=== PATIENT | female | born 1985 | race Caucasian/White ===

== ENCOUNTER 2018-05-08 15:34 | Observation (INO) ==
[2018-05-08] MEDS ORDERED: Naloxone 0.4 MG/ML INJ IVP PRN ×2 (15:51→21:19)
[2018-05-08] MEDS ORDERED: *HR* Promethazine 25 MG/ML VIAL IVP PRN ×2 (15:51→21:19)
[2018-05-08] MEDS ORDERED: OXYCODONE Oral CONC 10 MG/0.5 ML ORAL.SYG SL PRN (15:54)
[2018-05-08] MEDS ORDERED: 0.9 % Sodium Chloride 1,000 ML IVC SCH ×2 (16:00→21:19)
[2018-05-08] MEDS ORDERED: Clindamycin 900 MG/50 ML 900 MG/50 ML IV.SOLN IVPB SCH (16:00)
--- NOTE | 2018-05-08 17:56 | General Surg History&Physical ---
Date of Encounter: 05/08/18 Time of Encounter: 17:56 Assessment and Plan (1) Recurrent biliary colic Current Visit: Yes Status: Acute The assessment and plan as outlined above was discussed with the patient and/or family members who expressed understanding and agreement. All questions were answered. patient with continued issues with biliary colic npo, ivf hydration prn pain control will plan laparoscopic cholecystectomy, possible cholangiograms, possible open, risks and benefits previously discussed in office and she wishes to proceed antibiotics ok home medication (2) Seizure disorder Current Visit: Yes Status: Chronic The assessment and plan as outlined above was discussed with the patient and/or family members who expressed understanding and agreement. All questions were answered. continue home medication (3) HTN (hypertension) Current Visit: Yes Status: Chronic The assessment and plan as outlined above was discussed with the patient and/or family members who expressed understanding and agreement. All questions were answered. continue home medication Qualifiers: Hypertension type: essential hypertension Qualified Code(s): I10 - Essential (primary) hypertension History of Present Illness Chief complaint: RUQ abdominal pain HPI: Ms. Delgado is a 33 year old female who is known to me. She has been having RUQ sharp pain which radiates to her back for some time now. Surgery was postponed due to seizures and she underwent neurology clearance. Note printed off for anesthesia. She is still having RUQ pain and persistent nausea and vomiting. She denies diarrhea. She complains of tactile fevers. She had a GB US on 02.28.18 which showed small amt sludge. wbc 5.3, T bili 0.6, ast/alt 20/20, alk phos 46. She was on the OR schedule for next wednesday the . She returned to the ED yesterday which wbc 4.8, lft wnl. Patient was seen by myself several months ago for biliary colic symptoms but needed neurology clearance due to her seizures. She has since obtained clearance. She is still having daily nausea without emesis. Daily RUQ sharp pain that radiates to her back and it does not matter what she eats or when. She denies any diarrhea. She was given promethazine suppositories but she feels they do not help as well as the pills. Nothing makes the pain better. Gallbladder US 02.28.18 Small amount of gallbladder sludge. No cholelithiasis. No evidence of pericholecystic fluid. No evidence of gallbladder wall thickening. wbc 5.3, T bili 0.6, ast/alt 20/20, alk phos 46. Past Med Surg Social Fam HX - Past Medical History Source: patient Medical history: asthma, hepatitis, hyperlipidemia, hypertension, kidney stones , migraine, seizures, other Additional medical history: Hep C Psychiatric history: anxiety, bipolar, depression, PTSD - Past Surgical History Surgical History: other Additional surgical history: Tubal Ligation, bilateral knee surgery, hysteroscopy, D/C, Ablation, septoplasty, right ankle fusion, endoscopy - Social History Smoking Status: Never smoker Smokeless Tobacco Status: No Alcohol use: rarely Drug use: none - Family History Mother Adopted: No Living Status: Still Living Medications and Allergies Acetaminophen/Butalbital/Caffe [Fioricet] 1 cap PO Q4H PRN 05/08/18 [History] Albuterol Sulfate [Ventolin Hfa] 2 puff IH Q4H PRN 05/08/18 [History] Atorvastatin Calcium [Lipitor] 20 mg PO HS 05/08/18 [History] Dicyclomine [Bentyl] 20 mg PO QID 05/08/18 [History] Fexofenadine HCl 180 mg PO DAILY 05/08/18 [History] Gabapentin [Neurontin] 300 mg PO TID 05/08/18 [History] HydrOXYzine Pamoate [Vistaril] 50 mg PO Q8H 05/08/18 [History] LevETIRAcetam [Roweepra] 500 mg PO BID 05/08/18 [History] MOM Conc [Milk of Magnesia Conc] 15 ml PO Q6H PRN 05/08/18 [History] Montelukast [Singulair] 10 mg PO HS 05/08/18 [History] Omeprazole [PriLOSEC] 40 mg PO DAILY 05/08/18 [History] Promethazine [Phenergan] 25 mg PO Q8HR PRN 05/08/18 [History] Propranolol [Inderal] 10 mg PO BID 05/08/18 [History] Quetiapine Fumarate [SEROquel] 300 mg PO HS 05/08/18 [History] Sucralfate [Carafate] 1 gm PO Q6H 05/08/18 [History] 3 Allergy/AdvReac Type Severity Reaction Status Date / Time [place] Allergy Mild Rash Verified 05/08/18 15:36 cephalexin [From Keflex] Allergy Difficulty Verified 05/08/18 15:36 Breathing clarithromycin [From Biaxin] Allergy Difficulty Verified 05/08/18 15:36 Breathing Penicillins Allergy Hives Verified 05/08/18 15:36 Sulfa (Sulfonamide Allergy Blister Verified 05/08/18 15:36 Antibiotics) sumatriptan [From Imitrex] Allergy Difficulty Verified 05/08/18 15:36 Breathing zonisamide [From Zonegran] Allergy Blister Verified 05/08/18 15:36 benzoin AdvReac Rash Verified 05/08/18 15:36 celecoxib [From Celebrex] AdvReac Chest Pain Verified 05/08/18 15:36 naproxen AdvReac Gastrointestinal Verified 05/08/18 15:36 Upset ondansetron AdvReac Rash Verified 05/08/18 15:36 [From Zofran (as hydrochloride)] terbutaline [From Brethine] AdvReac Rash Verified 05/08/18 15:36 topiramate [From Topamax] AdvReac Blister Verified 05/08/18 15:36 Review of Systems All systems PM: reviewed and no additional remarkable complaints except as stated All systems PM: The remainder of the systems were reviewed and are negative General Surgery Exam see nurse notes - General physical appearance well developed, no distress - Eyes PERRL, normal ocular movement - ENT normal mucosa, normocephalic - Neck trachea midline - Respiratory normal expansion, clear to auscultation - Cardiovascular Cardiovascular exam: Present: RRR, no murmurs/rubs/gallops - Abdomen Abdomen general surgery: Present: bowel sounds present, soft, tender. Absent: distended, guarding, rebound Abdominal Tenderness: Present: epigastic, RUQ - Integumentary Integumentary general surgery: Present: warm and dry, no abnormal pigmentation - Neurologic Present: CN 2-12 grossly intact - Musculoskeletal Present: normal posture - Psychiatric Psychiatric general surgery: Present: A&Ox3, speech is normal Results - Labs All other labs normal.
--- NOTE | 2018-05-08 18:06 | Anesthesia Evaluation PreOp ---
Date of Encounter: 05/08/18 Time of Encounter: 19:21 - Past History Planned Operation: Lap cholecystectomy Cardiac History: HTN Pulmonary History: Smoker, Asthma USER INTERFACE ARTIST History: Seizures (04-28-18 neurology cleared her (with nml brain MRI and EEG without evidence of epileptiform activity); PCP refills her Keppra (took her Keppra prior to admission at 11 am on 05-08-18)) Other Medical History: Hepatic (Hep C), Renal (stones), GERD, Other (IBS) Anesthesia History: Past Anesthesia (nilson knee surgery, nilson ankle surgery, tubal , hysteroscopy with D&C, ablation, septoplasty, endoscopy), Problems (slow to emerge twice) Alcohol Use: rarely Drug use: none Medications and Allergies Acetaminophen/Butalbital/Caffe [Fioricet] 1 cap PO Q4H PRN 05/08/18 [History] Albuterol Sulfate [Ventolin Hfa] 2 puff IH Q4H PRN 05/08/18 [History] Atorvastatin Calcium [Lipitor] 20 mg PO HS 05/08/18 [History] Dicyclomine [Bentyl] 20 mg PO QID 05/08/18 [History] Fexofenadine HCl 180 mg PO DAILY 05/08/18 [History] Gabapentin [Neurontin] 300 mg PO TID 05/08/18 [History] HydrOXYzine Pamoate [Vistaril] 50 mg PO Q8H 05/08/18 [History] LevETIRAcetam [Roweepra] 500 mg PO BID 05/08/18 [History] MOM Conc [Milk of Magnesia Conc] 15 ml PO Q6H PRN 05/08/18 [History] Montelukast [Singulair] 10 mg PO HS 05/08/18 [History] Omeprazole [PriLOSEC] 40 mg PO DAILY 05/08/18 [History] Promethazine [Phenergan] 25 mg PO Q8HR PRN 05/08/18 [History] Propranolol [Inderal] 10 mg PO BID 05/08/18 [History] Quetiapine Fumarate [SEROquel] 300 mg PO HS 05/08/18 [History] Sucralfate [Carafate] 1 gm PO Q6H 05/08/18 [History] 3 Allergy/AdvReac Type Severity Reaction Status Date / Time [place] Allergy Mild Rash Verified 05/08/18 15:36 cephalexin [From Keflex] Allergy Difficulty Verified 05/08/18 15:36 Breathing clarithromycin [From Biaxin] Allergy Difficulty Verified 05/08/18 15:36 Breathing Penicillins Allergy Hives Verified 05/08/18 15:36 Sulfa (Sulfonamide Allergy Blister Verified 05/08/18 15:36 Antibiotics) sumatriptan [From Imitrex] Allergy Difficulty Verified 05/08/18 15:36 Breathing zonisamide [From Zonegran] Allergy Blister Verified 05/08/18 15:36 benzoin AdvReac Rash Verified 05/08/18 15:36 celecoxib [From Celebrex] AdvReac Chest Pain Verified 05/08/18 15:36 naproxen AdvReac Gastrointestinal Verified 05/08/18 15:36 Upset ondansetron AdvReac Rash Verified 05/08/18 15:36 [From Zofran (as hydrochloride)] terbutaline [From Brethine] AdvReac Rash Verified 05/08/18 15:36 topiramate [From Topamax] AdvReac Blister Verified 05/08/18 15:36 - Meds/Allergy Pre-op Review Medications Reviewed: Yes Allergies Reviewed: Yes (she is ok with toradol) Beta Blockers on Current Med List: Yes (inderal) If Beta Blockers taken, Date/Time (Last Dose taken): 05-07-17 inderal 23:00 Anesthesia Results - Labs Laboratory Tests 05/07/18 05/07/18 05/08/18 20:35 20:35 16:18 WBC 4.8 Hgb 13.1 Hct 37.8 Plt Count 280 Sodium 139 Potassium 3.6 Chloride 105 Carbon Dioxide 27 BUN 11 Creatinine 1.05 Est GFR ( Amer) > 60 Est GFR (Non-Af Amer) 60 BUN/Creatinine Ratio 10 Glucose 94 Calculated Osmolality 287 Calcium 9.7 Serum , Qual Negative - Imaging EKG: report reviewed, image reviewed (SINUS RHYTHM NONSPECIFIC T-WAVE ABNORMALITY INTERPRETATION BASED ON A DEFAULT AGE OF 40 YEARS) Additional studies: 2017 TTE: Impressions: LVEF 65%. Indeterminate diastolic function. Normal right ventricular structure and function. No significant valvular dysfunction. No pulmonary hypertension. No valvular vegetations on this study. Anesthesia Exam Last Vital Signs Temp 98.9 F 05/08/18 18:22 Pulse 80 05/08/18 18:22 Resp 16 05/08/18 18:22 BP 125/87 05/08/18 18:22 Pulse Ox 98 05/08/18 18:22 Weight: 57 kg NPO (# of Hours): > 8 hrs - HEENT Pupil (Motor): Pupils equal, EOMI Mallampati: I Teeth: Edentulous Oral Opening: Greater than 3 - USER INTERFACE ARTIST LOC: Oriented - Cardiac Rhythm: Regular Murmur: None - Pulmonary Breath Sounds: bilateral Clear Respiratory Effort: Symmetrical Anesthesia Assess/Plan ASA Score: 3 Modified [place]linda Scale for Level of Consciousness: Cooperative, oriented, and tranquil Anesthetic Plan: General Monitoring Plan: Standard Monitors Recovery Plan: PACU
[2018-05-08] MEDS ORDERED: *HR* FentaNYL (PF) 100 MCG/2 ML VIAL ONE (18:52)
[2018-05-08] MEDS ORDERED: *HR* Propofol 200 MG/20 ML VIAL IVP ONE (18:52)
[2018-05-08] MEDS ORDERED: *HR* Midazolam HCl 2 MG/2 ML VIAL ONE (18:52)
[2018-05-08] MEDS ORDERED: Lidocaine -MPF 2% 2 ML VIAL ONE (18:54)
[2018-05-08] MEDS ORDERED: Isovue-300 50 ML VIAL IVP ONE (19:30)
--- NOTE | 2018-05-08 20:26 | Operative Note ---
Date of procedure: 05/08/18 Pre-op diagnosis: biliary colic Post-op diagnosis: same Procedure: Laparoscopic cholecystectomy Complications: none immediate Anesthesia: SARA local Surgeon: Nichol Le Was there an production administrative assistant present: No Estimated blood loss (cc): 5 Specimen: gallbladder Condition: stable Disposition: PACU Procedure in Detail: The patient was brought into the operating suite and placed supine on the operating table. Sign-in was performed and everyone was in agreement. Anesthesia was induced and patient was endotracheally intubated by anesthesia without incident and they also placed an OG tube. The abdomen was prepped and draped in the usual sterile fashion. A timeout was performed again everyone was in agreement. A supraumbilical incision was made through the skin into the subcutaneous tissue with an 11 blade. Towel clamps were placed on either side of the umbilicus for retraction. S retractors were used to dissect down to the anterior abdominal wall linea alba fascia. A Veress needle was placed through this incision and a water drop test confirmed placement and the abdomen was insufflated. The abdomen was entered with a 5 mm 0 degree laparoscope on a 5 mm X-isabelle trocar. The area and entry was visualized was no bleeding and no apparent bowel injury. A 5 mm subxiphoid port was placed under direct visualization after first incising the skin with an 11 blade. A right upper quadrant subcostal position midclavicular line 5 mm port was placed under direct visualization after first incising skin with 11 blade. The laparoscope was placed in this and we exchanged the supraumbilical port for a 12 mm port under direct visualization. The last 5 mm port was placed in the right upper quadrant subcostal position anterior axillary line after first incising the skin with an 11 blade. The patient was placed in steep reverse Trendelenburg left side down position. The dome of the gallbladder was grasped and retracted cephalad. Omental adhesions to the body and infundibulum of the gallbladder were taken down bluntly with the [place]. The infundibulum was grasped and retracted laterally. Using the [place] we dissected out the cystic duct and cystic artery. Three 5 mm hemoclips were placed distally on the cystic duct one proximally and it was transected with curved scissors. The cystic artery was doubly clipped proximally, once distally and transected with curved scissors. The gallbladder was removed off the cystic plate with the Bovie. Any bleeding points were stopped with the Bovie. The gallbladder was placed in a laparoscopic Endo Catch bag and removed via the supraumbilical incision site. The inferior edge of the liver was bluntly retracted cephalad and the cystic plate was copiously irrigated with sterile saline. There was no bleeding or apparent bile leak from the cystic plate and the clips on the cystic artery and duct were intact. All irrigation was suctioned free from the abdomen. All insufflation was suctioned free from the abdomen and the ports removed. The abdominal wall at the supraumbilical incision site was closed with a 0 Vicryl [id number] stitch. 30 mL of 0.5% Marcaine was injected subcutaneously at the 4 port sites. The skin at the three 5 mm port sites were closed with 4-0 Monocryl interrupted subcuticular stitches. The skin at the supraumbilical incision site was closed with a 4-0 Monocryl running subcuticular stitch. Steri -Strips were applied to all wounds. The patient was awoken in the operating suite having tolerated the procedure well and were taken to PACU in stable condition after all lap and ensuring counts were correct at the end of the case.
--- NOTE | 2018-05-08 20:28 | Discharge Summary ---
Orders not resulted at time of discharge: Pending orders 05/08/18 20:21 Surgical Pathology [PTH] Routine 05/09/18 04:00 Complete Blood Count [HEME] AM 0400 Hepatic Panel AM 0400 05/10/18 04:00 Hepatic Panel AM 0400 Date of Encounter: 05/09/18 Time of Encounter: 12:00 - Discharge Diagnosis (1) Recurrent biliary colic Priority: Primary Status: Acute (2) Seizure disorder Priority: Secondary Status: Chronic (3) HTN (hypertension) Priority: Secondary Status: Chronic Qualifiers: Hypertension type: essential hypertension Qualified Code(s): I10 - Essential (primary) hypertension General Surgery Exam Initial Vital Signs Temp Pulse Resp BP Pulse Ox 98.9 F 80 16 125/87 98 05/08/18 18:22 05/08/18 18:22 05/08/18 18:22 05/08/18 18:22 05/08/18 18:22 - General physical appearance well developed, well nourished, no distress - Eyes normal ocular movement, loss of movement - ENT normal mucosa, normocephalic - Neck trachea midline - Respiratory normal expansion, clear to auscultation - Cardiovascular Cardiovascular exam: Present: RRR, no murmurs/rubs/gallops - Abdomen Abdomen general surgery: Present: bowel sounds present, soft, tender ( appropriate post op tenderness). Absent: guarding, rebound - Incision Incision: Present: clean and dry, intact - Integumentary Integumentary general surgery: Present: warm and dry, no abnormal pigmentation - Neurologic Present: CN 2-12 grossly intact - Musculoskeletal Present: normal posture - Psychiatric Psychiatric general surgery: Present: A&Ox3, speech is normal - Hospital Course Hospital course: Ms. Delgado is a 33 year old female - Time Spent with Patient Total time spent providing and/or coordinating discharge services: - Discharge Medications Prescriptions: OxyCODONE/APAP 5/325 [Percocet 5/325 MG] 1 each PO Q4HR PRN 6 Days #28 tablet PRN Reason: Pain Docusate [Colace] 100 mg PO DAILY #30 capsule Home Medications: Acetaminophen/Butalbital/Caffe [Fioricet] 1 cap PO Q4H PRN 05/08/18 [History] Albuterol Sulfate [Ventolin Hfa] 2 puff IH Q4H PRN 05/08/18 [History] Atorvastatin Calcium [Lipitor] 20 mg PO HS 05/08/18 [History] Dicyclomine [Bentyl] 20 mg PO QID 05/08/18 [History] Docusate [Colace] 100 mg PO DAILY #30 capsule 05/08/18 [Rx] Fexofenadine HCl 180 mg PO DAILY 05/08/18 [History] Gabapentin [Neurontin] 300 mg PO TID 05/08/18 [History] HydrOXYzine Pamoate [Vistaril] 50 mg PO Q8H 05/08/18 [History] LevETIRAcetam [Roweepra] 500 mg PO BID 05/08/18 [History] MOM Conc [MILK OF MAGNESIA conc] 15 ml PO Q6H PRN 05/08/18 [History] Montelukast [Singulair] 10 mg PO HS 05/08/18 [History] Omeprazole [PriLOSEC] 40 mg PO DAILY 05/08/18 [History] OxyCODONE/APAP 5/325 [Percocet 5/325 MG] 1 each PO Q4HR PRN 6 Days #28 tablet [Rx] Promethazine [Phenergan] 25 mg PO Q8HR PRN 05/08/18 [History] Propranolol [Inderal] 10 mg PO BID 05/08/18 [History] Quetiapine Fumarate [Seroquel] 300 mg PO HS 05/08/18 [History] Sucralfate [Carafate] 1 gm PO Q6H 05/08/18 [History] Allergies/Adverse Reactions: 3 Allergy/AdvReac Type Severity Reaction Status Date / Time [place] Allergy Mild Rash Verified 05/08/18 15:36 cephalexin [From Keflex] Allergy Difficulty Verified 05/08/18 15:36 Breathing clarithromycin [From Biaxin] Allergy Difficulty Verified 05/08/18 15:36 Breathing Penicillins Allergy Hives Verified 05/08/18 15:36 Sulfa (Sulfonamide Allergy Blister Verified 05/08/18 15:36 Antibiotics) sumatriptan [From Imitrex] Allergy Difficulty Verified 05/08/18 15:36 Breathing zonisamide [From Zonegran] Allergy Blister Verified 05/08/18 15:36 benzoin AdvReac Rash Verified 07/01/18 15:36 celecoxib [From Celebrex] AdvReac Chest Pain Verified 05/08/18 15:36 naproxen AdvReac Gastrointestinal Verified 05/08/18 15:36 Upset ondansetron AdvReac Rash Verified 05/08/18 15:36 [From Zofran (as hydrochloride)] terbutaline [From Brethine] AdvReac Rash Verified 05/08/18 15:36 topiramate [From Topamax] AdvReac Blister Verified 05/08/18 15:36 Date of admission: 05/08/18 15:47 Primary care physician: Ina Vela Consults: 05/08/18 18:33 Consult to Nutrition [CONS] Routine Comment: Consulting Provider: NUTRITION Reason for Dietary Consult: MST Score Discharging clinician: Nichol Le Anticipated date of discharge: 05/09/18 Labs on day of discharge: Labs from last 24 hours 05/08/18 16:18 Serum , Qual Negative - Patient Status Disposition: Home, Self-Care Condition: Good Functional capacity at discharge: independent ambulation Overall status at discharge: patient is progressing back to baseline - Discharge Instructions Follow Up With: Ina Vela [Primary Care Provider] - Darby Anderson CNP [Advanced Practice Nurse] - Additional Instructions: No lifting more than 20 pounds for 2 weeks. Okay to take a shower in 24 hours. No tub baths or pools for 1 week. Okay to ride in the car wearing a seatbelt and climb steps. No driving until off narcotics for 24 hours and able to react safely Remove Steri-Strips in 1 week Do not take pain medicine/narcotics on an empty stomach it will likely cause nausea and possibly vomiting. If pain medication is too strong okay to break in half - Diet and Activity Activity: increase activity as tolerated Diet: advance to your usual diet
[2018-05-08] MEDS ORDERED: Gabapentin 300 MG CAPSULE PO SCH (21:00)
[2018-05-08] MEDS ORDERED: levETIRAcetam 250 MG TABLET PO SCH (21:00)
[2018-05-08] MEDS ORDERED: hydrOXYzine pamoate 25 MG CAPSULE PO SCH (21:00)
[2018-05-08] MEDS: *HR* Labetalol 20 MG/4 ML SYRINGE IVP ONE ×2 (21:07→21:21)
[2018-05-08] MEDS: *HR* OxyCODONE/APAP 5/325 TABLET PO PRN (21:43)
[2018-05-08] MEDS: levETIRAcetam 250 MG TABLET PO SCH (22:34)
--- NOTE | 2018-05-08 23:18 | Anesthesia Evaluation Post Op ---
Date of Encounter: 05/08/18 Time of Encounter: 21:05 - Vital Signs Vital Signs: Vital Signs/O2 Sat/Glucose, Most Current Temp Pulse Resp BP Pulse Ox 05/08/18 21:06 97.8 F 73 12 141/102 99 05/08/18 20:56 79 12 140/101 99 05/08/18 20:46 81 14 139/99 98 05/08/18 20:36 98.4 F 87 14 135/99 100 - Lungs Lungs: Clear Ascult./Percussion - Airway Airway: Non-obstructed - Cardiovascular Regular Rate - Mental Status Mental Status: Asleep with brisk response to light stimulation - Pain Pain Scale: 0 Pain Scale used: Numeric (1 - 10) - Nausea Vomiting Nausea Vomiting: Not Present - Hydration Hydration: Ice chips, Has not voided - Discharge PostOp Status: Transfer Patient to floor Anes Supervising Prov Stmt: Pt seen/evaluated, VSS and pt has met criteria for discharge to home. - MD [place]
[2018-05-08] MEDS: OXYCODONE Oral CONC 10 MG/0.5 ML ORAL.SYG SL PRN (23:36)
[2018-05-09] MEDS: *HR* OxyCODONE/APAP 5/325 TABLET PO PRN ×2 (01:43→06:04)
[2018-05-09 06:34] LABS: Basophils % 0.2 %; Hematocrit 32.1 % (35.3-44.9); Immature Granulocytes % 0.5 % (0-4); Lymphocytes # 0.6 K/mcL (0.6-4.6); Lymphocytes % 10.6 %; Mean Corpuscular HGB Conc 34.3 g/dL (31.6-35.5); Mean Corpuscular Hemoglobin 31.3 pg (28.0-33.3); Mean Corpuscular Volume 91.2 fL (83.0-100.0); Monocytes # 0.1 K/mcL (0.0-1.3); Monocytes % 1.1 %; Neutrophils # 4.8 K/mcL (1.6-8.9); Platelet Count 239 K/mcL (140-400); Red Blood Count 3.52 M/mcL (3.82-4.97); Red Cell Distribution Width 13.2 % (11.5-14.5); Segmented Neutrophils % 87.6 %
[2018-05-09 06:53] LABS: Albumin 3.7 g/dL (3.5-5.7); Albumin/Globulin Ratio 1.3 (1.1-2.2); Bilirubin,Direct 0.1 mg/dL (0.0-0.2); Bilirubin,Indirect 0.3 mg/dL (0.0-1.2); Bilirubin,Total 0.4 mg/dL (0.3-1.0); Globulin 2.9 g/dL (2.4-3.5); Total Protein 6.6 g/dL (6.4-8.9)
[2018-05-09 07:07] VITALS: BP 110/71
[2018-05-09] MEDS: OXYCODONE Oral CONC 10 MG/0.5 ML ORAL.SYG SL PRN (07:37)
[2018-05-09] MEDS: levETIRAcetam 250 MG TABLET PO SCH (07:38)
[2018-05-09] MEDS ORDERED: Loratadine 10 MG TABLET PO SCH (09:00)
[2018-05-09] MEDS ORDERED: Gabapentin 300 MG CAPSULE PO SCH (09:00)
[2018-05-09] MEDS ORDERED: hydrOXYzine pamoate 25 MG CAPSULE PO SCH (09:00)
== END 2018-05-09 10:21 | disposition home or self-care (01) ==
LOC: 3ANU
PROVIDERS: ADMIT Surgery; ATTEND Surgery

== ENCOUNTER 2018-09-01 23:13 | Observation (INO) ==
[2018-09-01] MEDS ORDERED: 0.9 % Sodium Chloride 1,000 ML IVC ONE (23:19)
[2018-09-01] MEDS ORDERED: *HR* Promethazine 25 MG/ML VIAL IVP ONE (23:19)
[2018-09-01] MEDS ORDERED: Isovue-370 500 ML INFUS..BTL IV ONE (23:20)
--- NOTE | 2018-09-01 23:21 | Emergency Department Note ---
Disposition Clinical Impression: Abdominal pain Qualifiers: Abdominal location: lower abdomen, unspecified Qualified Code(s): R10.30 - Lower abdominal pain, unspecified Acute appendicitis Qualifiers: Acute appendicitis type: with localized peritonitis Appendicitis gangrene presence: without gangrene Appendicitis perforation presence: without perforation Appendicitis abscess presence: without abscess Qualified Code(s): K35.30 - Acute appendicitis with localized peritonitis, without perforation or gangrene Disposition: Admitted As Inpatient Condition: Good Time of Disposition: 03:12 Abdominal Pain HPI - General Stated Complaint: abd Time Seen by Provider: 09/01/18 23:18 Nursing Notes Reviewed: Yes Vital Signs Reviewed: Yes - History of Present Illness HPI Narrative: 33-year-old female presents from home via EMS for abdominal pain. Onset many months ago. Slightly worse after her cholecystectomy in May. Notably worse throughout the day. Pain is now located in the hypogastrium. Nonradiating. Described as sharp stabbing squeezing. She has associated bloating and nausea. History of cholecystectomy May 2018. Hepatitis C. "11 kidney stones" location unknown to her. ROS: Positive: As above Negative: Diarrhea, constipation, dysuria, vaginal discharge, fever, chills, vomiting, chest pains, palpitations, back pain, trauma - Related Data Home Medications Medication Instructions Recorded Confirmed Acetaminophen/Butalbital/Caffe 1 cap PO Q4H PRN 05/08/18 05/08/18 [Fioricet] Albuterol Sulfate [Ventolin Hfa] 2 puff IH Q4H PRN 05/08/18 05/08/18 Atorvastatin Calcium [Lipitor] 20 mg PO HS 05/08/18 05/08/18 Dicyclomine [Bentyl] 20 mg PO QID 05/08/18 05/08/18 Fexofenadine HCl 180 mg PO DAILY 05/08/18 05/08/18 Gabapentin [Neurontin] 300 mg PO TID 05/08/18 05/08/18 HydrOXYzine Pamoate [Vistaril] 50 mg PO Q8H 05/08/18 05/08/18 LevETIRAcetam [Roweepra] 500 mg PO BID 05/08/18 05/08/18 MOM Conc [MILK OF MAGNESIA conc] 15 ml PO Q6H PRN 05/08/18 05/08/18 Montelukast [Singulair] 10 mg PO HS 05/08/18 05/08/18 Omeprazole [PriLOSEC] 40 mg PO DAILY 05/08/18 05/08/18 Promethazine [Phenergan] 25 mg PO Q8HR PRN 05/08/18 05/08/18 Propranolol [Inderal] 10 mg PO BID 05/08/18 05/08/18 Quetiapine Fumarate [Seroquel] 300 mg PO HS 05/08/18 05/08/18 Sucralfate [Carafate] 1 gm PO Q6H 05/08/18 05/08/18 Previous Rx's Medication Instructions Recorded Docusate [Colace] 100 mg PO DAILY #30 capsule 05/08/18 OxyCODONE/APAP 5/325 [Percocet 1 each PO Q4HR PRN 6 Days #28 05/08/18 5/325 MG] tablet Nitrofurantoin (BID) [Macrobid] 100 mg PO BID #10 capsule 05/24/18 Promethazine [Phenergan] 25 mg PO Q8HR #15 tablet 07/14/18 Bismuth Subsalicylate [Bismatrol] 525 mg PO DAILY #14 mls 07/26/18 Omeprazole [PriLOSEC] 20 mg PO BIDAC #28 cap 07/26/18 Tetracycline HCl 500 mg PO QID 14 Days #14 capsule 07/26/18 metroNIDAZOLE [Metronidazole] 250 mg PO QID 14 Days #14 tablet 07/26/18 Metoclopramide [Reglan] 10 mg PO Q6HR PRN #12 tablet 08/05/18 Metoclopramide [Reglan] 10 mg PO Q6HR #28 tablet 08/19/18 Allergies Allergy/AdvReac Type Severity Reaction Status Date / Time [place] Allergy Mild Rash Verified 05/08/18 15:36 cephalexin [From Keflex] Allergy Difficulty Verified 05/08/18 15:36 Breathing clarithromycin [From Biaxin] Allergy Difficulty Verified 05/08/18 15:36 Breathing Penicillins Allergy Hives Verified 05/08/18 15:36 Sulfa (Sulfonamide Allergy Blister Verified 05/08/18 15:36 Antibiotics) sumatriptan [From Imitrex] Allergy Difficulty Verified 05/08/18 15:36 Breathing zonisamide [From Zonegran] Allergy Blister Verified 05/08/18 15:36 benzoin AdvReac Rash Verified 05/08/18 15:36 celecoxib [From Celebrex] AdvReac Chest Pain Verified 05/08/18 15:36 naproxen AdvReac Gastrointestinal Verified 05/08/18 15:36 Upset ondansetron AdvReac Rash Verified 05/08/18 15:36 [From Zofran (as hydrochloride)] terbutaline [From Brethine] AdvReac Rash Verified 05/08/18 15:36 topiramate [From Topamax] AdvReac Blister Verified 05/08/18 15:36 All systems ED: reviewed and negative except as stated. Review of Systems: As Per HPI Abdominal Pain PMH - Past Medical History Medical history: Reports: asthma, hepatitis, hyperlipidemia, hypertension, kidney stones, migraine, seizures, other Female Surgical History: Reports: cholecystectomy [employer] history: Reports: bilateral tubal ligation, other Psychiatric history: Reports: anxiety, bipolar, depression, PTSD - Social History Smoking status: Never smoker Alcohol use: Reports: rarely Drug use: Reports: cocaine, IV Drug Use Physical Exam Vital Signs Reviewed General: Patient is alert, oriented, and in no acute distress. Head: atraumatic, normocephalic Eye: normal appearance, PERRL, EOMI, no scleral icterus, no conjunctival injection ENT: mucous membranes moist, normal external ear exam Neck: normal inspection, trachea midline, full ROM Chest: normal inspection, symmetric chest rise Respiratory: Good respiratory effort. Bilateral breath sounds are clear without wheezing, crackles, or rhonchi. Cardiovascular: Regular rate and rhythm. No clicks, rubs, gallops, or murmors. Normal heart sounds. Abdomen: Bowel sounds present normoactive x-4 quadrants. Abdomen is soft, nondistended. Mild diffuse abdominal pain most prominent in the right lower quadrant. No guarding or rebound. No organomegaly noted. Musculoskeletal: Spontaneously moving all extremities. Skin: warm, dry, intact. Neuro: Alert and oriented x4. Sensation light touch intact. Psych: Patient's affect is appropriate for situation. Course Course Narrative: Patient has had 5 CTs the last 3 months. Given her abdominal surgical history, abdominal bloating, epigastric abdominal pain she is agreeable to a additional CT. We will also perform labs were workup. Attempt supportive management with workup pending. Patient re-evaluated and attempted to clarify her history. Her RLQ pain has been intermittent since May when she had a cholecystectomy. It became abruptly worse yesterday. Associated with nausea, anorexia. I discussed the patient with Dr. Blood. We discussed her imaging in early July which was CTA abdomen pelvis which showed normal appendix. We discussed her clinical course as well as her multiple allergies. He agrees to accept her to his services with current antibiotic therapy of Cipro Flagyl. Vital Signs Temperature 98.4 F 09/01/18 23:19 Pulse Rate 105 09/01/18 23:19 Respiratory Rate 18 09/01/18 23:19 Blood Pressure 145/105 09/01/18 23:19 O2 Sat by Pulse Oximetry 100 09/01/18 23:19 Temperature 98.4 F 09/01/18 23:19 Pulse Rate 105 09/01/18 23:19 Respiratory Rate 18 09/01/18 23:19 Blood Pressure 145/105 09/01/18 23:19 O2 Sat by Pulse Oximetry 100 09/01/18 23:19 Oxygen Delivery Oxygen Delivery Room Air Abdominal Pain - Lab Data Result diagrams: 09/01/18 23:19 09/02/18 00:33 Lab Results 09/01/18 09/01/18 09/01/18 Range/Units 23:19 23:41 23:41 WBC 6.3 (4.3-11.1) K/mcL RBC 4.50 (3.82-4.97) M/mcL Hgb 13.6 (11.5-15.4) g/dL Hct 39.7 (35.3-44.9) % MCV 88.2 (83.0-100.0) fL MCH 30.2 (28.0-33.3) pg MCHC 34.3 (31.6-35.5) g/dL RDW 13.6 (11.5-14.5) % Plt Count 248 (140-400) K/mcL MPV 8.6 L (9.4-12.4) fL Immature Gran % 0.3 (0-4) % Seg Neutrophils % 60.5 % Lymphocytes % 30.0 % Monocytes % 7.6 % Eosinophils % 1.0 % Basophils % 0.6 % Neutrophils # 3.8 (1.6-8.9) K/mcL Lymphocytes # 1.9 (0.6-4.6) K/mcL Monocytes # 0.5 (0.0-1.3) K/mcL Eosinophils # 0.1 (0.0-0.6) K/mcL Basophils # 0.0 (0.0-0.2) K/mcL Sodium (136-145) mEq/L Potassium (3.5-5.1) mEq/L Chloride (98-107) mEq/L Carbon Dioxide (23-29) mEq/L BUN (6-20) mg/dL Creatinine (0.60-1.20) mg/dL Est GFR ( Amer) (> 60) Est GFR (Non-Af Amer) (> 60) BUN/Creatinine Ratio (6-26) Glucose (70-105) mg/dL Calculated Osmolality (280-300) Lactic Acid (0.5-2.2) mmol/L Calcium (8.6-10.3) mg/dL Total Bilirubin (0.3-1.0) mg/dL Direct Bilirubin (0.0-0.2) mg/dL Indirect Bilirubin (0.0-1.2) mg/dL AST (13-39) Units/L ALT (7-52) Units/L Alkaline Phosphatase (34-104) Units/L Serum Total Protein (6.4-8.9) g/dL Albumin (3.5-5.7) g/dL Globulin (2.4-3.5) g/dL Albumin/Globulin Ratio (1.1-2.2) Lipase (11-82) Units/L Urine Color Yellow (Yellow) Urine Clarity Clear (Clear) Urine pH 5.5 (5.0-8.0) pH Units Ur Specific [place] > 1.030 H (1.010-1.025) Urine Protein 100 H (Neg-Trace) mg/dL Urine Glucose (UA) Normal (Normal) mg/dL Urine Ketones Negative (Negative) mg/dL Urine Blood Small H (Negative) Urine Nitrite Negative (Negative) Urine Bilirubin Negative (Negative) Urine Urobilinogen Normal (Normal) mg/dL Ur Leukocyte Esterase Negative (Negative) Urine Microscopic RBC 15-30 H (0-3) per hpf Urine Microscopic WBC 5-15 H (0-3) per hpf Ur Squamous Epith Cells Many H (None-Few) per lpf Urine Bacteria Moderate H (None-Few) per hpf Hyaline Casts Few (None-Few) per lpf Ur Culture Indicated? NO (NO) Urine Test Negative (Negative) 09/02/18 09/02/18 Range/Units 00:33 00:33 WBC (4.3-11.1) K/mcL RBC (3.82-4.97) M/mcL Hgb (11.5-15.4) g/dL Hct (35.3-44.9) % MCV (83.0-100.0) fL MCH (28.0-33.3) pg MCHC (31.6-35.5) g/dL RDW (11.5-14.5) % Plt Count (140-400) K/mcL MPV (9.4-12.4) fL Immature Gran % (0-4) % Seg Neutrophils % % Lymphocytes % % Monocytes % % Eosinophils % % Basophils % % Neutrophils # (1.6-8.9) K/mcL Lymphocytes # (0.6-4.6) K/mcL Monocytes # (0.0-1.3) K/mcL Eosinophils # (0.0-0.6) K/mcL Basophils # (0.0-0.2) K/mcL Sodium 136 (136-145) mEq/L Potassium 4.4 (3.5-5.1) mEq/L Chloride 103 (98-107) mEq/L Carbon Dioxide 19 L (23-29) mEq/L BUN 14 (6-20) mg/dL Creatinine 1.00 (0.60-1.20) mg/dL Est GFR ( Amer) > 60 (> 60) Est GFR (Non-Af Amer) > 60 (> 60) BUN/Creatinine Ratio 14 (6-26) Glucose 89 (70-105) mg/dL Calculated Osmolality 282 (280-300) Lactic Acid 0.6 (0.5-2.2) mmol/L Calcium 9.3 (8.6-10.3) mg/dL Total Bilirubin 0.3 (0.3-1.0) mg/dL Direct Bilirubin 0.1 (0.0-0.2) mg/dL Indirect Bilirubin 0.2 (0.0-1.2) mg/dL AST 34 (13-39) Units/L ALT 43 (7-52) Units/L Alkaline Phosphatase 63 (34-104) Units/L Serum Total Protein 8.0 (6.4-8.9) g/dL Albumin 4.4 (3.5-5.7) g/dL Globulin 3.6 H (2.4-3.5) g/dL Albumin/Globulin Ratio 1.2 (1.1-2.2) Lipase 14 (11-82) Units/L Urine Color (Yellow) Urine Clarity (Clear) Urine pH (5.0-8.0) pH Units Ur Specific [place] (1.010-1.025) Urine Protein (Neg-Trace) mg/dL Urine Glucose (UA) (Normal) mg/dL Urine Ketones (Negative) mg/dL Urine Blood (Negative) Urine Nitrite (Negative) Urine Bilirubin (Negative) Urine Urobilinogen (Normal) mg/dL Ur Leukocyte Esterase (Negative) Urine Microscopic RBC (0-3) per hpf Urine Microscopic WBC (0-3) per hpf Ur Squamous Epith Cells (None-Few) per lpf Urine Bacteria (None-Few) per hpf Hyaline Casts (None-Few) per lpf Ur Culture Indicated? (NO) Urine Test (Negative)
[2018-09-02 00:10] LABS: Bilirubin,Urine Negative (Negative); Blood,Urine Small (Negative); Clarity,Urine Clear (Clear); Color,Urine Yellow (Yellow); Glucose,Urine (UA) Normal (Normal); Ketones,Urine Negative (Negative); Leukocyte Esterase,Urine Negative (Negative); Nitrite,Urine Negative (Negative); PH,Urine 5.5 pH Units (5.0-8.0); Protein,Urine 100 mg/dL (Neg-Trace); Specific Gravity,Urine > 1.030 (1.010-1.025); Urobilinogen,Urine Normal (Normal)
[2018-09-02 00:12] LABS: Bacteria,Urine Moderate per hpf (None-Few); Hyaline Casts,Urine Few per lpf (None-Few); RBC,Urine 15-30 per hpf (0-3); Squamous Epithelial Cell,Urine Many per lpf (None-Few)
[2018-09-02 00:50] LABS: Basophils % 0.6 %; Eosinophils # 0.1 K/mcL (0.0-0.6); Hematocrit 39.7 % (35.3-44.9); Hemoglobin 13.6 g/dL (11.5-15.4); Immature Granulocytes % 0.3 % (0-4); Lymphocytes # 1.9 K/mcL (0.6-4.6); Mean Corpuscular HGB Conc 34.3 g/dL (31.6-35.5); Mean Corpuscular Hemoglobin 30.2 pg (28.0-33.3); Mean Corpuscular Volume 88.2 fL (83.0-100.0); Mean Platelet Volume 8.6 fL (9.4-12.4); Monocytes # 0.5 K/mcL (0.0-1.3); Monocytes % 7.6 %; Neutrophils # 3.8 K/mcL (1.6-8.9); Platelet Count 248 K/mcL (140-400); Red Cell Distribution Width 13.6 % (11.5-14.5); Segmented Neutrophils % 60.5 %
[2018-09-02 01:12] LABS: Alanine Aminotransferase 43 Units/L (7-52); Albumin 4.4 g/dL (3.5-5.7); Albumin/Globulin Ratio 1.2 (1.1-2.2); Alkaline Phosphatase 63 Units/L (34-104); Aspartate Amino Transferase 34 Units/L (13-39); BUN/Creatinine Ratio 14 (6-26); Bilirubin,Direct 0.1 mg/dL (0.0-0.2); Bilirubin,Indirect 0.2 mg/dL (0.0-1.2); Bilirubin,Total 0.3 mg/dL (0.3-1.0); Blood Urea Nitrogen 14 mg/dL (6-20); Calcium 9.3 mg/dL (8.6-10.3); Carbon Dioxide 19 mEq/L (23-29); Chloride 103 mEq/L (98-107); Globulin 3.6 g/dL (2.4-3.5); Glucose 89 mg/dL (70-105); Lipase 14 Units/L (11-82); Osmolality,Calculated 282 (280-300); Potassium 4.4 mEq/L (3.5-5.1); Sodium 136 mEq/L (136-145); eGFR For Non-African Americans > 60 (> 60)
[2018-09-02] MEDS ORDERED: MetroNIDAZOLE 500 MG/100 ML 500 MG/100 ML BAG IVPB ONE (02:47)
[2018-09-02] MEDS ORDERED: *HR* FentaNYL (PF) 100 MCG/2 ML VIAL IVP ONE (02:48)
--- NOTE | 2018-09-02 03:32 | Emergency Department Note ---
Disposition Clinical Impression: Abdominal pain Qualifiers: Abdominal location: lower abdomen, unspecified Qualified Code(s): R10.30 - Lower abdominal pain, unspecified Acute appendicitis Qualifiers: Acute appendicitis type: with localized peritonitis Appendicitis gangrene presence: without gangrene Appendicitis perforation presence: without perforation Appendicitis abscess presence: without abscess Qualified Code(s): K35.30 - Acute appendicitis with localized peritonitis, without perforation or gangrene Disposition: Admitted As Inpatient Condition: Good General Adult HPI - General Chief complaint: ED Abdominal Pain Stated complaint: abd Time Seen by Provider: 09/01/18 23:18 Source: patient Limitations: no limitations Nursing Notes Reviewed: Yes Vital Signs Reviewed: Yes - History of Present Illness Pain Scale: 8 - Related Data Home Medications Medication Instructions Recorded Confirmed Acetaminophen/Butalbital/Caffe 1 cap PO Q4H PRN 05/08/18 05/08/18 [Fioricet] Albuterol Sulfate [Ventolin Hfa] 2 puff IH Q4H PRN 05/08/18 05/08/18 Atorvastatin Calcium [Lipitor] 20 mg PO HS 05/08/18 05/08/18 Dicyclomine [Bentyl] 20 mg PO QID 05/08/18 05/08/18 Fexofenadine HCl 180 mg PO DAILY 05/08/18 05/08/18 Gabapentin [Neurontin] 300 mg PO TID 05/08/18 05/08/18 HydrOXYzine Pamoate [Vistaril] 50 mg PO Q8H 05/08/18 05/08/18 LevETIRAcetam [Roweepra] 500 mg PO BID 05/08/18 05/08/18 MOM Conc [MILK OF MAGNESIA conc] 15 ml PO Q6H PRN 05/08/18 05/08/18 Montelukast [Singulair] 10 mg PO HS 05/08/18 05/08/18 Omeprazole [PriLOSEC] 40 mg PO DAILY 05/08/18 05/08/18 Promethazine [Phenergan] 25 mg PO Q8HR PRN 05/08/18 05/08/18 Propranolol [Inderal] 10 mg PO BID 05/08/18 05/08/18 Quetiapine Fumarate [Seroquel] 300 mg PO HS 05/08/18 05/08/18 Sucralfate [Carafate] 1 gm PO Q6H 05/08/18 05/08/18 Previous Rx's Medication Instructions Recorded Docusate [Colace] 100 mg PO DAILY #30 capsule 05/08/18 OxyCODONE/APAP 5/325 [Percocet 1 each PO Q4HR PRN 6 Days #28 05/08/18 5/325 MG] tablet Nitrofurantoin (BID) [Macrobid] 100 mg PO BID #10 capsule 05/24/18 Promethazine [Phenergan] 25 mg PO Q8HR #15 tablet 07/14/18 Bismuth Subsalicylate [Bismatrol] 525 mg PO DAILY #14 mls 07/26/18 Omeprazole [PriLOSEC] 20 mg PO BIDAC #28 cap 07/26/18 Tetracycline HCl 500 mg PO QID 14 Days #14 capsule 07/26/18 metroNIDAZOLE [Metronidazole] 250 mg PO QID 14 Days #14 tablet 07/26/18 Metoclopramide [Reglan] 10 mg PO Q6HR PRN #12 tablet 08/05/18 Metoclopramide [Reglan] 10 mg PO Q6HR #28 tablet 08/19/18 Allergies Allergy/AdvReac Type Severity Reaction Status Date / Time [place] Allergy Mild Rash Verified 05/08/18 15:36 cephalexin [From Keflex] Allergy Difficulty Verified 05/08/18 15:36 Breathing clarithromycin [From Biaxin] Allergy Difficulty Verified 05/08/18 15:36 Breathing Penicillins Allergy Hives Verified 05/08/18 15:36 Sulfa (Sulfonamide Allergy Blister Verified 05/08/18 15:36 Antibiotics) sumatriptan [From Imitrex] Allergy Difficulty Verified 05/08/18 15:36 Breathing zonisamide [From Zonegran] Allergy Blister Verified 05/08/18 15:36 benzoin AdvReac Rash Verified 05/08/18 15:36 celecoxib [From Celebrex] AdvReac Chest Pain Verified 05/08/18 15:36 naproxen AdvReac Gastrointestinal Verified 05/08/18 15:36 Upset ondansetron AdvReac Rash Verified 05/08/18 15:36 [From Zofran (as hydrochloride)] terbutaline [From Brethine] AdvReac Rash Verified 05/08/18 15:36 topiramate [From Topamax] AdvReac Blister Verified 05/08/18 15:36 Past Medical History - Past Medical History Medical history: Reports: asthma, hepatitis, hyperlipidemia, hypertension, kidney stones, migraine, seizures, other Surgical history: Reports: other Psychiatric history: Reports: anxiety, bipolar, depression, PTSD [employer] history: Reports: bilateral tubal ligation, other - Social History Smoking Status: Never smoker Smokeless Tobacco Status: No Alcohol use: Reports: rarely Drug use: Reports: cocaine, IV Drug Use Physical Exam - General Limitations: no limitations General appearance: alert Course Vital Signs Temperature 98.4 F 09/01/18 23:19 Pulse Rate 105 09/01/18 23:19 Respiratory Rate 18 09/01/18 23:19 Blood Pressure 145/105 09/01/18 23:19 O2 Sat by Pulse Oximetry 100 09/01/18 23:19 Temperature 98.4 F 09/01/18 23:19 Pulse Rate 105 09/01/18 23:19 Respiratory Rate 18 09/01/18 23:19 Blood Pressure 145/105 09/01/18 23:19 O2 Sat by Pulse Oximetry 100 09/01/18 23:19 Oxygen Delivery Oxygen Delivery Room Air Medical Decision Making - Medical Records Medical records reviewed: Yes I reviewed the patient's medical records. - Lab Data Lab results reviewed: Yes I reviewed the patient's lab results. Result diagrams: 09/01/18 23:19 09/02/18 00:33 Lab Results 09/01/18 09/01/18 09/01/18 Range/Units 23:19 23:41 23:41 WBC 6.3 (4.3-11.1) K/mcL RBC 4.50 (3.82-4.97) M/mcL Hgb 13.6 (11.5-15.4) g/dL Hct 39.7 (35.3-44.9) % MCV 88.2 (83.0-100.0) fL MCH 30.2 (28.0-33.3) pg MCHC 34.3 (31.6-35.5) g/dL RDW 13.6 (11.5-14.5) % Plt Count 248 (140-400) K/mcL MPV 8.6 L (9.4-12.4) fL Immature Gran % 0.3 (0-4) % Seg Neutrophils % 60.5 % Lymphocytes % 30.0 % Monocytes % 7.6 % Eosinophils % 1.0 % Basophils % 0.6 % Neutrophils # 3.8 (1.6-8.9) K/mcL Lymphocytes # 1.9 (0.6-4.6) K/mcL Monocytes # 0.5 (0.0-1.3) K/mcL Eosinophils # 0.1 (0.0-0.6) K/mcL Basophils # 0.0 (0.0-0.2) K/mcL Sodium (136-145) mEq/L Potassium (3.5-5.1) mEq/L Chloride (98-107) mEq/L Carbon Dioxide (23-29) mEq/L BUN (6-20) mg/dL Creatinine (0.60-1.20) mg/dL Est GFR ( Amer) (> 60) Est GFR (Non-Af Amer) (> 60) BUN/Creatinine Ratio (6-26) Glucose (70-105) mg/dL Calculated Osmolality (280-300) Lactic Acid (0.5-2.2) mmol/L Calcium (8.6-10.3) mg/dL Total Bilirubin (0.3-1.0) mg/dL Direct Bilirubin (0.0-0.2) mg/dL Indirect Bilirubin (0.0-1.2) mg/dL AST (13-39) Units/L ALT (7-52) Units/L Alkaline Phosphatase (34-104) Units/L Serum Total Protein (6.4-8.9) g/dL Albumin (3.5-5.7) g/dL Globulin (2.4-3.5) g/dL Albumin/Globulin Ratio (1.1-2.2) Lipase (11-82) Units/L Urine Color Yellow (Yellow) Urine Clarity Clear (Clear) Urine pH 5.5 (5.0-8.0) pH Units Ur Specific [place] > 1.030 H (1.010-1.025) Urine Protein 100 H (Neg-Trace) mg/dL Urine Glucose (UA) Normal (Normal) mg/dL Urine Ketones Negative (Negative) mg/dL Urine Blood Small H (Negative) Urine Nitrite Negative (Negative) Urine Bilirubin Negative (Negative) Urine Urobilinogen Normal (Normal) mg/dL Ur Leukocyte Esterase Negative (Negative) Urine Microscopic RBC 15-30 H (0-3) per hpf Urine Microscopic WBC 5-15 H (0-3) per hpf Ur Squamous Epith Cells Many H (None-Few) per lpf Urine Bacteria Moderate H (None-Few) per hpf Hyaline Casts Few (None-Few) per lpf Ur Culture Indicated? NO (NO) Urine Test Negative (Negative) 09/02/18 09/02/18 Range/Units 00:33 00:33 WBC (4.3-11.1) K/mcL RBC (3.82-4.97) M/mcL Hgb (11.5-15.4) g/dL Hct (35.3-44.9) % MCV (83.0-100.0) fL MCH (28.0-33.3) pg MCHC (31.6-35.5) g/dL RDW (11.5-14.5) % Plt Count (140-400) K/mcL MPV (9.4-12.4) fL Immature Gran % (0-4) % Seg Neutrophils % % Lymphocytes % % Monocytes % % Eosinophils % % Basophils % % Neutrophils # (1.6-8.9) K/mcL Lymphocytes # (0.6-4.6) K/mcL Monocytes # (0.0-1.3) K/mcL Eosinophils # (0.0-0.6) K/mcL Basophils # (0.0-0.2) K/mcL Sodium 136 (136-145) mEq/L Potassium 4.4 (3.5-5.1) mEq/L Chloride 103 (98-107) mEq/L Carbon Dioxide 19 L (23-29) mEq/L BUN 14 (6-20) mg/dL Creatinine 1.00 (0.60-1.20) mg/dL Est GFR ( Amer) > 60 (> 60) Est GFR (Non-Af Amer) > 60 (> 60) BUN/Creatinine Ratio 14 (6-26) Glucose 89 (70-105) mg/dL Calculated Osmolality 282 (280-300) Lactic Acid 0.6 (0.5-2.2) mmol/L Calcium 9.3 (8.6-10.3) mg/dL Total Bilirubin 0.3 (0.3-1.0) mg/dL Direct Bilirubin 0.1 (0.0-0.2) mg/dL Indirect Bilirubin 0.2 (0.0-1.2) mg/dL AST 34 (13-39) Units/L ALT 43 (7-52) Units/L Alkaline Phosphatase 63 (34-104) Units/L Serum Total Protein 8.0 (6.4-8.9) g/dL Albumin 4.4 (3.5-5.7) g/dL Globulin 3.6 H (2.4-3.5) g/dL Albumin/Globulin Ratio 1.2 (1.1-2.2) Lipase 14 (11-82) Units/L Urine Color (Yellow) Urine Clarity (Clear) Urine pH (5.0-8.0) pH Units Ur Specific [place] (1.010-1.025) Urine Protein (Neg-Trace) mg/dL Urine Glucose (UA) (Normal) mg/dL Urine Ketones (Negative) mg/dL Urine Blood (Negative) Urine Nitrite (Negative) Urine Bilirubin (Negative) Urine Urobilinogen (Normal) mg/dL Ur Leukocyte Esterase (Negative) Urine Microscopic RBC (0-3) per hpf Urine Microscopic WBC (0-3) per hpf Ur Squamous Epith Cells (None-Few) per lpf Urine Bacteria (None-Few) per hpf Hyaline Casts (None-Few) per lpf Ur Culture Indicated? (NO) Urine Test (Negative) - Radiology Data Radiology results reviewed: Yes I reviewed the patient's radiology results. Abdomen/Pelvis CT 09/02/18 23:20 IMPRESSION: Mildly dilated appendix increased in prominence compared to recent prior examination with mild periappendiceal fat stranding suggesting mild appendicitis. Stable bilateral nonobstructing stones in both kidneys including a 6 mm right midpole stone. No hydronephrosis. D/ / Eloy Diallo MD / Eloy Diallo MD Interpreting Provider: Eloy Diallo MD Attestation Statement - Attestation Attestation: Luis E De Jesus MD, personally evaluated this patient and discussed their management with the resident physician. I reviewed the resident's note and agree with the documented findings, medical decision making, and plan of care. 33-year-old female persisted emergency department with a complaint of increased right lower quadrant abdominal pain over the past 2 days. Patient has a history of chronic abdominal pain but states this is worse than usual and different. On examination patient is a well-developed well-nourished female in no acute distress. She is alert and oriented 3. There is no cyanosis or diaphoresis. Breath sounds are clear and equal bilaterally. Heart regular rate and rhythm. Abdomen is soft with normal bowel sounds. There is moderate right lower quadrant tenderness and mild guarding. No rebound tenderness. No CVA tenderness. Labs reviewed and unremarkable. CT the abdomen and pelvis obtained and was consistent with mild acute appendicitis. The surgeon concrete paver, Dr. Johnson, was consulted and accepted admission of the patient.
[2018-09-02] MEDS ORDERED: 0.9 % Sodium Chloride 1,000 ML IVC SCH (05:00)
[2018-09-02] MEDS: *HR* OxyCODONE/APAP 10/325 TABLET PO PRN ×3 (05:38→20:05)
[2018-09-02] MEDS: hydrOXYzine pamoate 25 MG CAPSULE PO SCH ×2 (08:49→16:22)
[2018-09-02] MEDS: Gabapentin 300 MG CAPSULE PO SCH ×2 (08:49→16:22)
[2018-09-02] MEDS: levETIRAcetam 500 MG/5 ML UDC PO SCH (08:49)
[2018-09-02] MEDS ORDERED: Sucralfate 1 GM TABLET PO SCH ×2 (09:00→16:30)
[2018-09-02] MEDS ORDERED: *HR* Propofol 200 MG/20 ML VIAL IVP ONE ×2 (10:44→22:48)
[2018-09-02] MEDS ORDERED: *HR* Midazolam HCl 2 MG/2 ML VIAL ONE (10:44)
[2018-09-02] MEDS ORDERED: Ondansetron 4 MG/2 ML VIAL ONE ×2 (10:44→22:50)
[2018-09-02] MEDS ORDERED: *HR* FentaNYL (PF) 100 MCG/2 ML VIAL ONE ×2 (10:44→22:48)
[2018-09-02] MEDS ORDERED: Lidocaine -MPF 2% 2 ML VIAL ONE ×2 (10:44→22:48)
[2018-09-02] MEDS ORDERED: Dexamethasone 4 MG/ML VIAL ONE ×2 (10:44→22:50)
[2018-09-02] MEDS ORDERED: *HR* Rocuronium Bromide 50 MG/5 ML VIAL ONE ×2 (10:45→22:48)
[2018-09-02] MEDS ORDERED: Neostigmine Methylsulfate 3 MG/3 ML SYRINGE ONE (10:45)
[2018-09-02] MEDS ORDERED: Lidocaine -MPF 4% 5 ML AMPUL ONE (10:45)
[2018-09-02] MEDS ORDERED: CefOXitin 1,000 MG VIAL ONE (10:52)
[2018-09-02] MEDS: MetroNIDAZOLE 500 MG/100 ML 500 MG/100 ML BAG IVPB SCH ×2 (11:18→16:32)
--- NOTE | 2018-09-02 11:29 | General Surg History&Physical ---
<RosauraDragan - Last Filed: 09/02/18 11:03> Date of Encounter: 09/02/18 Time of Encounter: 07:30 Assessment and Plan (1) Acute appendicitis Current Visit: Yes Status: Acute The assessment and plan as outlined above was discussed with the patient and/or family members who expressed understanding and agreement. All questions were answered. Patient signed consent to have laparoscopic appendectomy with possible open today with Dr. Le Patient has CT evidence of mild appendicitis WBC 6.3 Patient has +McBurney's, +Rovsing's, +rebound tenderness Afebrile Patient on phenergan for nausea Patient started on metronidazole On IVF Qualifiers: Acute appendicitis type: with localized peritonitis Appendicitis gangrene presence: without gangrene Appendicitis perforation presence: without perforation Appendicitis abscess presence: without abscess Qualified Code(s): K35.30 - Acute appendicitis with localized peritonitis, without perforation or gangrene History of Present Illness Chief complaint: abdominal pain HPI: Ms. Delgado is a 33 year old female with PMHx of Hep C, HTN, HLD who presented to the ED last night with sharp abdominal pain. She states the pain began on Wednesday (08/30) in her lower abdomen but is worse in the right lower quadrant. Patient admits to vomiting on Wednesday and Wednesday (08/29-). Her last bowel movement was on Wednesday. Patient says she hasn't had an appetite and hasn't been able to eat anything since Wednesday either. Patient has had several CTs for similar abdominal symptoms in the past, which have shown mild appendicitis to normal findings. She has associated nausea. Patient denies CP, SOB, fevers/chills. Patient had recent cholecystectomy by Dr. Le in May 2018. Past Med Surg Social Fam HX - Past Medical History Medical history: asthma, hepatitis, hyperlipidemia, hypertension, kidney stones, migraine, seizures, other Additional medical history: Hep C Psychiatric history: anxiety, bipolar, depression, PTSD - Past Surgical History Surgical History: other Additional surgical history: Lithotripsy - Social History Smoking Status: Never smoker Smokeless Tobacco Status: No Alcohol use: none Drug use: none - Family History Brother Living Status: Still Living Hx Family Cardiac Disorders: Yes Mother Adopted: No Living Status: Still Living Hx Family Cardiac Disorders: Yes Hx Family Cancer: Yes Hx Family Endocrine Disorder: Yes Medications and Allergies RX: Acetaminophen/Butalbital/Caffe [Fioricet] 1 cap PO Q6HR PRN 05/08/18 [ History] RX: Albuterol Sulfate [Ventolin Hfa] 2 puff IH Q4H PRN 05/08/18 [History] RX: Dicyclomine [Bentyl] 20 mg PO TID 05/08/18 [History] RX: Gabapentin [Neurontin] 300 mg PO TID 05/08/18 [History] RX: HydrOXYzine Pamoate [Vistaril] 50 mg PO TID 05/08/18 [History] RX: LevETIRAcetam [Roweepra] 500 mg PO BID 05/08/18 [History] RX: Promethazine [Phenergan] 25 mg PO Q8HR PRN 05/08/18 [History] RX: Propranolol [Inderal] 10 mg PO BID 05/08/18 [History] RX: Quetiapine Fumarate [Seroquel] 400 mg PO HS 05/08/18 [History] RX: Sucralfate [Carafate] 1 gm PO BID 05/08/18 [History] Docusate [Colace] 100 mg PO DAILY PRN 09/02/18 [History] Fluticasone Propionate [Allergy Relief] 1 spr NS DAILY 09/02/18 [History] RX: Fexofenadine HCl 180 mg PO DAILY 09/02/18 [History] Allergy/AdvReac Type Severity Reaction Status Date / Time [place] Allergy Mild Rash Verified 05/08/18 15:36 cephalexin [From Keflex] Allergy Difficulty Verified 05/08/18 15:36 Breathing clarithromycin [From Biaxin] Allergy Difficulty Verified 05/08/18 15:36 Breathing Penicillins Allergy Hives Verified 05/08/18 15:36 Sulfa (Sulfonamide Allergy Blister Verified 05/08/18 15:36 Antibiotics) sumatriptan [From Imitrex] Allergy Difficulty Verified 05/08/18 15:36 Breathing zonisamide [From Zonegran] Allergy Blister Verified 05/08/18 15:36 benzoin AdvReac Rash Verified 05/08/18 15:36 celecoxib [From Celebrex] AdvReac Chest Pain Verified 05/08/18 15:36 naproxen AdvReac Gastrointestinal Verified 05/08/18 15:36 Upset ondansetron AdvReac Rash Verified 05/08/18 15:36 [From Zofran (as hydrochloride)] terbutaline [From Brethine] AdvReac Rash Verified 05/08/18 15:36 topiramate [From Topamax] AdvReac Blister Verified 05/08/18 15:36 Review of Systems All systems PM: The remainder of the systems were reviewed and are negative General Surgery Exam Initial Vital Signs Temp Pulse Resp BP Pulse Ox 98.4 F 105 18 145/105 100 09/01/18 23:19 09/01/18 23:19 09/01/18 23:19 09/01/18 23:19 09/01/18 23:19 - General physical appearance moderate distress - Respiratory normal expansion, normal respiratory effort - Cardiovascular Cardiovascular exam: Present: RRR - Abdomen Abdomen general surgery: Present: bowel sounds present, soft, tender, rebound Abdominal Tenderness: Present: RLQ, LLQ - Integumentary Integumentary general surgery: Present: warm and dry - Psychiatric Psychiatric general surgery: Present: A&Ox3, appropriate, oriented to person, oriented to place, oriented to time Results - Labs 09/01/18 23:19 09/02/18 00:33 Abnormal lab results MPV 8.6 fL (9.4-12.4) L 09/01/18 23:19 Carbon Dioxide 19 mEq/L (23-29) L 09/02/18 00:33 Globulin 3.6 g/dL (2.4-3.5) H 09/02/18 00:33 Ur Specific [place] > 1.030 (1.010-1.025) H 09/01/18 23:41 Urine Protein 100 mg/dL (Neg-Trace) H 09/01/18 23:41 Urine Blood Small (Negative) H 09/01/18 23:41 Urine Microscopic RBC 15-30 per hpf (0-3) H 09/01/18 23:41 Urine Microscopic WBC 5-15 per hpf (0-3) H 09/01/18 23:41 Ur Squamous Epith Cells Many per lpf (None-Few) H 09/01/18 23:41 Urine Bacteria Moderate per hpf (None-Few) H 09/01/18 23:41 Diabetes panel 09/02/18 Range/Units 00:33 Sodium 136 (136-145) mEq/L Potassium 4.4 (3.5-5.1) mEq/L Chloride 103 (98-107) mEq/L Carbon Dioxide 19 L (23-29) mEq/L BUN 14 (6-20) mg/dL Creatinine 1.00 (0.60-1.20) mg/dL Glucose 89 (70-105) mg/dL Calcium 9.3 (8.6-10.3) mg/dL AST 34 (13-39) Units/L ALT 43 (7-52) Units/L Alkaline Phosphatase 63 (34-104) Units/L Albumin 4.4 (3.5-5.7) g/dL Calcium panel 09/02/18 Range/Units 00:33 Calcium 9.3 (8.6-10.3) mg/dL Albumin 4.4 (3.5-5.7) g/dL Pituitary panel 09/02/18 Range/Units 00:33 Sodium 136 (136-145) mEq/L Potassium 4.4 (3.5-5.1) mEq/L Chloride 103 (98-107) mEq/L Carbon Dioxide 19 L (23-29) mEq/L BUN 14 (6-20) mg/dL Creatinine 1.00 (0.60-1.20) mg/dL Glucose 89 (70-105) mg/dL Calcium 9.3 (8.6-10.3) mg/dL Adrenal panel 09/02/18 Range/Units 00:33 Sodium 136 (136-145) mEq/L Potassium 4.4 (3.5-5.1) mEq/L Chloride 103 (98-107) mEq/L Carbon Dioxide 19 L (23-29) mEq/L BUN 14 (6-20) mg/dL Creatinine 1.00 (0.60-1.20) mg/dL Glucose 89 (70-105) mg/dL Calcium 9.3 (8.6-10.3) mg/dL Total Bilirubin 0.3 (0.3-1.0) mg/dL AST 34 (13-39) Units/L ALT 43 (7-52) Units/L Alkaline Phosphatase 63 (34-104) Units/L Albumin 4.4 (3.5-5.7) g/dL All other labs normal. <Nichol Le L - Last Filed: 09/02/18 18:25> Time of Encounter: 17:00 Assessment and Plan (1) Abdominal pain Current Visit: Yes Status: Acute The assessment and plan as outlined above was discussed with the patient and/or family members who expressed understanding and agreement. All questions were answered. discussed with patient recent CT findings. I am not 100% convinced her symptoms are related to her appendix as it is retrocecal but given her continued pain discussed taking her appendix out and seeing if it helps her symptoms. Will plan laparoscopic appendectomy, possible open risks and benefits discussed and she wishes to proceed. npo ivfh prn pain control/antiemetics gi/dvt prophylaxis check drug screen Qualifiers: Abdominal location: lower abdomen, unspecified Qualified Code(s): R10.30 - Lower abdominal pain, unspecified History of Present Illness HPI: Ms. Delgado is a 33 year old female with continued abdominal pain from umbilicus to RLQ. She describes the pain as sharp to dull. She had nausea and emesis. No fevers, chills or night sweats. She was seen in the office recently for similar symptoms. She has CT scans showing fluid filled appendix. Normal wbc Past Med Surg Social Fam HX - Past Medical History Source: patient - Past Surgical History Surgical History: cholecystectomy - Family History Daughter Living Status: Cause of : GIB Review of Systems All systems PM: reviewed and no additional remarkable complaints except as stated All systems PM: The remainder of the systems were reviewed and are negative General Surgery Exam Initial Vital Signs Temp Pulse Resp BP Pulse Ox 98.4 F 105 18 145/105 100 09/01/18 23:19 09/01/18 23:19 09/01/18 23:19 09/01/18 23:19 09/01/18 23:19 - General physical appearance well developed, well nourished, no distress - Eyes PERRL, normal ocular movement - ENT normal mucosa, normocephalic - Neck trachea midline - Respiratory normal expansion, normal respiratory effort - Cardiovascular Cardiovascular exam: Present: RRR - Abdomen Abdomen general surgery: Present: bowel sounds present, soft, tender. Absent: distended, guarding, rebound Abdominal Tenderness: Present: RLQ, diffusely - Integumentary Integumentary general surgery: Present: warm and dry, no abnormal pigmentation. Absent: diaphoresis - Neurologic Present: CN 2-12 grossly intact - Musculoskeletal Present: normal posture - Psychiatric Psychiatric general surgery: Present: A&Ox3 Results - Labs 09/01/18 23:19 09/02/18 00:33 Abnormal lab results MPV 8.6 fL (9.4-12.4) L 09/01/18 23:19 Carbon Dioxide 19 mEq/L (23-29) L 09/02/18 00:33 Globulin 3.6 g/dL (2.4-3.5) H 09/02/18 00:33 Ur Specific [place] > 1.030 (1.010-1.025) H 09/01/18 23:41 Urine Protein 100 mg/dL (Neg-Trace) H 09/01/18 23:41 Urine Blood Small (Negative) H 09/01/18 23:41 Urine Microscopic RBC 15-30 per hpf (0-3) H 09/01/18 23:41 Urine Microscopic WBC 5-15 per hpf (0-3) H 09/01/18 23:41 Ur Squamous Epith Cells Many per lpf (None-Few) H 09/01/18 23:41 Urine Bacteria Moderate per hpf (None-Few) H 09/01/18 23:41 Diabetes panel 09/02/18 Range/Units 00:33 Sodium 136 (136-145) mEq/L Potassium 4.4 (3.5-5.1) mEq/L Chloride 103 (98-107) mEq/L Carbon Dioxide 19 L (23-29) mEq/L BUN 14 (6-20) mg/dL Creatinine 1.00 (0.60-1.20) mg/dL Glucose 89 (70-105) mg/dL Calcium 9.3 (8.6-10.3) mg/dL AST 34 (13-39) Units/L ALT 43 (7-52) Units/L Alkaline Phosphatase 63 (34-104) Units/L Albumin 4.4 (3.5-5.7) g/dL Calcium panel 09/02/18 Range/Units 00:33 Calcium 9.3 (8.6-10.3) mg/dL Albumin 4.4 (3.5-5.7) g/dL Pituitary panel 09/02/18 Range/Units 00:33 Sodium 136 (136-145) mEq/L Potassium 4.4 (3.5-5.1) mEq/L Chloride 103 (98-107) mEq/L Carbon Dioxide 19 L (23-29) mEq/L BUN 14 (6-20) mg/dL Creatinine 1.00 (0.60-1.20) mg/dL Glucose 89 (70-105) mg/dL Calcium 9.3 (8.6-10.3) mg/dL Adrenal panel 09/02/18 Range/Units 00:33 Sodium 136 (136-145) mEq/L Potassium 4.4 (3.5-5.1) mEq/L Chloride 103 (98-107) mEq/L Carbon Dioxide 19 L (23-29) mEq/L BUN 14 (6-20) mg/dL Creatinine 1.00 (0.60-1.20) mg/dL Glucose 89 (70-105) mg/dL Calcium 9.3 (8.6-10.3) mg/dL Total Bilirubin 0.3 (0.3-1.0) mg/dL AST 34 (13-39) Units/L ALT 43 (7-52) Units/L Alkaline Phosphatase 63 (34-104) Units/L Albumin 4.4 (3.5-5.7) g/dL All other labs normal. - Imaging CT scan - abdomen: report reviewed, image reviewed CT scan - pelvis: report reviewed, image reviewed - Attending Attestation I examined this patient and my medical decision-making was reviewed with the Resident Physician. I agree with the documented findings, disposition and treatment plan as described except to the extent set forth below.
--- NOTE | 2018-09-02 19:42 | Anesthesia Evaluation PreOp ---
Date of Encounter: 09/02/18 Time of Encounter: 18:01 - Past History Planned Operation: Lap. Appy Cardiac History: HTN Pulmonary History: Smoker, Asthma ASSISTANT FRONT OFFICE MANAGER History: Seizures (04-28-18 neurology cleared her (with nml brain MRI and EEG without evidence of epileptiform activity)) Other Medical History: Hepatic (Hep C), Renal (Stones), GERD, Other (IBS) Anesthesia History: No Prior Anesthetic Complications, Past Anesthesia (nilson knee surgery, nilson ankle surgery, tubal, hysteroscopy with D&C, ablation, septoplasty, endoscopy, Lap Maggie) : No Test: Negative (09/01/18) Alcohol Use: none Drug use: none Medications and Allergies Acetaminophen/Butalbital/Caffe [Fioricet] 1 cap PO Q6HR PRN 05/08/18 [History] Albuterol Sulfate [Ventolin Hfa] 2 puff IH Q4H PRN 05/08/18 [History] Dicyclomine [Bentyl] 20 mg PO TID 05/08/18 [History] Gabapentin [Neurontin] 300 mg PO TID 05/08/18 [History] HydrOXYzine Pamoate [Vistaril] 50 mg PO TID 05/08/18 [History] LevETIRAcetam [Roweepra] 500 mg PO BID 05/08/18 [History] Promethazine [Phenergan] 25 mg PO Q8HR PRN 05/08/18 [History] Propranolol [Inderal] 10 mg PO BID 05/08/18 [History] Quetiapine Fumarate [Seroquel] 400 mg PO HS 05/08/18 [History] Sucralfate [Carafate] 1 gm PO BID 05/08/18 [History] Docusate [Colace] 100 mg PO DAILY PRN 09/02/18 [History] Fexofenadine HCl 180 mg PO DAILY 09/02/18 [History] Fluticasone Propionate [Allergy Relief] 1 spr NS DAILY 09/02/18 [History] Allergy/AdvReac Type Severity Reaction Status Date / Time [place] Allergy Mild Rash Verified 05/08/18 15:36 cephalexin [From Keflex] Allergy Difficulty Verified 05/08/18 15:36 Breathing clarithromycin [From Biaxin] Allergy Difficulty Verified 05/08/18 15:36 Breathing Penicillins Allergy Hives Verified 05/08/18 15:36 Sulfa (Sulfonamide Allergy Blister Verified 05/08/18 15:36 Antibiotics) sumatriptan [From Imitrex] Allergy Difficulty Verified 05/08/18 15:36 Breathing zonisamide [From Zonegran] Allergy Blister Verified 05/08/18 15:36 benzoin AdvReac Rash Verified 05/08/18 15:36 celecoxib [From Celebrex] AdvReac Chest Pain Verified 05/08/18 15:36 naproxen AdvReac Gastrointestinal Verified 05/08/18 15:36 Upset ondansetron AdvReac Rash Verified 05/08/18 15:36 [From Zofran (as hydrochloride)] terbutaline [From Brethine] AdvReac Rash Verified 05/08/18 15:36 topiramate [From Topamax] AdvReac Blister Verified 05/08/18 15:36 - Meds/Allergy Pre-op Review Medications Reviewed: Yes Allergies Reviewed: Yes Beta Blockers on Current Med List: Yes If Beta Blockers taken, Date/Time (Last Dose taken): 08:49 09/02/18 Anesthesia Results - Labs 09/01/18 23:19 09/02/18 00:33 2017 TTE: Impressions: LVEF 65%. Indeterminate diastolic function. Normal right ventricular structure and function. No significant valvular dysfunction. No pulmonary hypertension. No valvular vegetations on this study. Laboratory Tests 09/01/18 23:41 Urine Test Negative Anesthesia Exam O2 Sat Height 1.63 m Height 1.63 m Weight 63.957 kg Weight 61.263 kg O2 Sat by Pulse Oximetry 100 O2 Sat by Pulse Oximetry 100 O2 Sat by Pulse Oximetry 96 O2 Sat by Pulse Oximetry 100 O2 Sat by Pulse Oximetry 99 O2 Sat by Pulse Oximetry 97 O2 Sat by Pulse Oximetry 100 Vital Signs Temp Pulse Resp BP Pulse Ox 98.4 F 105 18 145/105 100 09/01/18 23:19 09/01/18 23:19 09/01/18 23:19 09/01/18 23:19 09/01/18 23:19 NPO (# of Hours): > 8 hrs Pain Scale: 0 Pain Scale Used: Numeric (1 - 10) - HEENT Pupil (Motor): Pupils equal, EOMI Mallampati: I Teeth: Edentulous Oral Opening: Greater than 3 - ASSISTANT FRONT OFFICE MANAGER LOC: Oriented ASSISTANT FRONT OFFICE MANAGER Motor: Normal RUE, Normal LUE, Normal RLE, Normal LLE, Normal Face ASSISTANT FRONT OFFICE MANAGER Sensory: Normal: RUE, LUE, RLE, LLE, Face - Cardiac Rhythm: Regular Murmur: None JVD: No Carotid Bruit: No - Pulmonary Breath Sounds: bilateral Clear Respiratory Effort: Symmetrical Anesthesia Assess/Plan ASA Score: 3 Modified [place] Scale for Level of Consciousness: Asleep with no response Autologous Blood: Yes Monitoring Plan: Standard Monitors Recovery Plan: PACU
[2018-09-02] MEDS ORDERED: Ondansetron 4 MG/2 ML VIAL IVP ONE (22:17)
[2018-09-02] MEDS ORDERED: *HR* Meperidine 25 MG/ML SYRINGE IVP PRN (22:17)
[2018-09-02] MEDS ORDERED: *HR* OxyCODONE Immed Rel 5 MG TABLET PO PRN (22:17)
[2018-09-02] MEDS ORDERED: Ringers Solution, Lactated 1,000 ML IVC SCH (22:30)
[2018-09-02] MEDS ORDERED: *HR* Succinylcholine 200 MG/10 ML VIAL IVP ONE (22:48)
[2018-09-02] MEDS ORDERED: *HR* HYDROmorphone (PF) 1 MG/ML SYRINGE ONE (23:12)
[2018-09-02] MEDS ORDERED: *HR* PHENYLEPHRINE 1,000 MCG/10 ML SYRINGE IVP ONE (23:50)
--- NOTE | 2018-09-03 00:08 | Operative Note ---
Date of procedure: 09/03/18 Pre-op diagnosis: acute appendicitis Post-op diagnosis: same Procedure: laparoscopic appendectomy Complications: none immediate Anesthesia: SARA, local Surgeon: Nichol Le Was there an licensed occupational therapy assistant present: No Estimated blood loss (cc): 5 Specimen: appendix Condition: stable Disposition: PACU Procedure in Detail: The patient was brought into the operating suite and placed supine on the operating table. Sign-in was performed and everyone was in agreement. Anesthesia was induced and patient was endotracheally intubated by anesthesia without incident. An OG tube was placed by anesthesia. The abdomen was prepped and draped in the usual sterile fashion. A timeout was performed and again everyone was in agreement. A supraumbilical incision was made through the skin and the subcutaneous tissue with an 11 blade. Towel clamps were placed on either side of the umbilicus for retraction. S-retractors were used to dissect down to the anterior abdominal wall linea alba fascia. A Veress needle was placed into this incision and a water drop test confirmed placement and the abdomen was insufflated. We then entered the abdomen with the 5 mm 0 degree laparoscope on a 5 mm X-isabelle trocar. The area under entry was visualized and there was no bleeding and no apparent bowel injury. We placed a suprapubic 5 mm port under direct visualization after first incising the skin with an 11 blade. The laparoscope was placed through this and we exchanged the supraumbilical port for a 12 mm port under direct visualization. We then placed another 5 mm port in the left lower quadrant position under direct visualization after first incising the skin with an 11 blade. The patient was placed in slight Trendelenburg left side down position. The cecum was located as was the appendix. The appendix was grasped and retracted anteriorly and caudally with a laparoscopic [place]. A [place] was used to dissect between the mesoappendix and the appendix at the base of the cecum. The mesoappendix was transected with a laparoscopic flex-ex ETS stapler using a white load. The appendix was transected at the base of the cecum with the same stapler utilizing a white load. The appendix was placed in a laparoscopic Endo Catch bag and removed via the supraumbilical incision site. Both staple lines were evaluated and there was no bleeding and both staple lines were intact. The area was irrigated with sterile saline which was then suctioned free from the abdomen. The insufflation was suctioned free from the abdomen and all trochars removed. We closed the abdominal wall at the supraumbilical incision site with an 0 Vicryl [id number] stitch. A 30 cc of 0.5% Marcaine was injected subcutaneously at the 3 port sites. The skin at the two 5 mm port sites was closed with 4-0 Monocryl interrupted subcuticular stitches. The skin at the supraumbilical incision site was closed with a 4-0 Monocryl running subcuticular stitch. Steri-Strips were applied to the wounds. The patient was extubated in the OR and tolerated the procedure well and was taken to PACU after all lap and instrument counts were correct at the end of the case.
[2018-09-03] MEDS: *HR* HYDROmorphone (PF) 1 MG/ML SYRINGE IVP PRN ×4 (00:21→00:36)
[2018-09-03] MEDS: *HR* Promethazine 25 MG/ML VIAL IVP PRN ×4 (00:23→11:58)
--- NOTE | 2018-09-03 00:44 | Anesthesia Evaluation Post Op ---
Date of Encounter: 09/03/18 Time of Encounter: 00:43 - Vital Signs Vital Signs: Vital Signs/O2 Sat, Most Current Temp Pulse Resp BP Pulse Ox 98.6 F 96 14 143/95 99 09/03/18 00:15 09/03/18 00:35 09/03/18 00:35 09/03/18 00:35 09/03/18 00:35 - Lungs Lungs: Clear Ascult./Percussion - Airway Airway: Non-obstructed - Cardiovascular Regular Rate - Mental Status Mental Status: Asleep with brisk response to light stimulation - Pain Pain Scale used: Numeric (1 - 10) (tolerable) - Nausea Vomiting Nausea Vomiting: Not Present - Hydration Hydration: Ice chips - Discharge PostOp Status: Transfer Patient to floor
[2018-09-03] MEDS: levETIRAcetam 500 MG/5 ML UDC PO SCH (01:06)
[2018-09-03] MEDS: hydrOXYzine pamoate 25 MG CAPSULE PO SCH (01:06)
[2018-09-03] MEDS: Gabapentin 300 MG CAPSULE PO SCH (01:07)
[2018-09-03] MEDS ORDERED: OXYCODONE Oral CONC 10 MG/0.5 ML ORAL.SYG SL PRN (01:11)
[2018-09-03] MEDS ORDERED: 0.9 % Sodium Chloride 1,000 ML IVC SCH (01:11)
[2018-09-03] MEDS: *HR* OxyCODONE/APAP 10/325 TABLET PO PRN ×2 (02:40→09:01)
[2018-09-03 04:09] LABS: Basophils % 0.2 %; Eosinophils % 0.2 %; Hematocrit 40.9 % (35.3-44.9); Hemoglobin 13.5 g/dL (11.5-15.4); Immature Granulocytes % 0.3 % (0-4); Lymphocytes # 0.7 K/mcL (0.6-4.6); Lymphocytes % 7.2 %; Mean Corpuscular Hemoglobin 30.4 pg (28.0-33.3); Mean Corpuscular Volume 92.1 fL (83.0-100.0); Mean Platelet Volume 8.6 fL (9.4-12.4); Monocytes # 0.1 K/mcL (0.0-1.3); Monocytes % 1.1 %; Platelet Count 233 K/mcL (140-400); Red Blood Count 4.44 M/mcL (3.82-4.97)
[2018-09-03 04:10] LABS: Neutrophils # 8.7 K/mcL (1.6-8.9)
[2018-09-03] MEDS ORDERED: levETIRAcetam 500 MG/5 ML UDC PO SCH (09:00)
[2018-09-03] MEDS ORDERED: Gabapentin 300 MG CAPSULE PO SCH (09:00)
[2018-09-03] MEDS ORDERED: hydrOXYzine pamoate 25 MG CAPSULE PO SCH (09:00)
--- NOTE | 2018-09-03 10:13 | Discharge Summary ---
<TrueGenaro salgadotootie Gee - Last Filed: 09/03/18 10:10> Orders not resulted at time of discharge: Pending orders 09/02/18 17:08 Drug Screen, Serum [Drug Screen 9 Reflex Conf Qnt] Stat 09/02/18 23:59 Surgical Pathology [PTH] Routine Date of Encounter: 09/03/18 Time of Encounter: 10:12 - Discharge Diagnosis (1) Abdominal pain Priority: Secondary Status: Acute Qualifiers: Abdominal location: lower abdomen, unspecified Qualified Code(s): R10.30 - Lower abdominal pain, unspecified (2) Acute appendicitis Priority: Primary Status: Acute Qualifiers: Acute appendicitis type: with localized peritonitis Appendicitis gangrene presence: without gangrene Appendicitis perforation presence: without perforation Appendicitis abscess presence: without abscess Qualified Code(s): K35.30 - Acute appendicitis with localized peritonitis, without perforation or gangrene General Surgery Exam Initial Vital Signs Temp Pulse Resp BP Pulse Ox 98.4 F 105 18 145/105 100 09/01/18 23:19 09/01/18 23:19 09/01/18 23:19 09/01/18 23:19 09/01/18 23:19 - General physical appearance well nourished, no distress, moderate pain - Eyes PERRL, normal ocular movement - Neck trachea midline - Respiratory normal expansion, normal respiratory effort - Cardiovascular Cardiovascular exam: Present: RRR - Abdomen Abdomen general surgery: Present: bowel sounds present, soft, tender (appropriate post op tenderness). Absent: guarding, rebound - Incision Incision: Present: clean and dry, intact - Integumentary Integumentary general surgery: Present: warm and dry - Neurologic Present: CN 2-12 grossly intact - Musculoskeletal Present: normal posture - Psychiatric Psychiatric general surgery: Present: A&Ox3, speech is normal - Hospital Course Hospital course: Ms. Delgado is a 33 year old female was admitted with right lower quadrant and periumbilical abdominal pain. CT scan showed very mild fat stranding around the appendix and a dilated appendix. Patient was taken to the operating room on 1025 2017 for an uncomplicated laparoscopic appendectomy. Postoperatively she tolerated I diet was up ambulating well having appropriate bowel and bladder function. She was discharged home in stable condition. - Time Spent with Patient Total time spent providing and/or coordinating discharge services: Less than 30 minutes - Discharge Medications Prescriptions: Oxycodone HCl/Acetaminophen [Percocet 5-325 mg Tablet] 1 each PO Q6HR 7 Days #20 tablet Sulfamethoxazole/Trimeth DS [Bactrim DS] 1 each PO DAILY #10 tablet Home Medications: Acetaminophen/Butalbital/Caffe [Fioricet] 1 cap PO Q6HR PRN 05/08/18 [History] Albuterol Sulfate [Ventolin Hfa] 2 puff IH Q4H PRN 05/08/18 [History] Dicyclomine [Bentyl] 20 mg PO TID 05/08/18 [History] Gabapentin [Neurontin] 300 mg PO TID 05/08/18 [History] HydrOXYzine Pamoate [Vistaril] 50 mg PO TID 05/08/18 [History] LevETIRAcetam [Roweepra] 500 mg PO BID 05/08/18 [History] Promethazine [Phenergan] 25 mg PO Q8HR PRN 05/08/18 [History] Propranolol [Inderal] 10 mg PO BID 05/08/18 [History] Quetiapine Fumarate [Seroquel] 400 mg PO HS 05/08/18 [History] Sucralfate [Carafate] 1 gm PO BID 05/08/18 [History] Docusate [Colace] 100 mg PO DAILY PRN 09/02/18 [History] Fexofenadine HCl 180 mg PO DAILY 09/02/18 [History] Fluticasone Propionate [Allergy Relief] 1 spr NS DAILY 09/02/18 [History] Oxycodone HCl/Acetaminophen [Percocet 5-325 mg Tablet] 1 each PO Q6HR 7 Days #20 tablet 09/03/18 [Rx] Sulfamethoxazole/Trimeth DS [Bactrim DS] 1 each PO DAILY #10 tablet 09/03/18 [Rx] Allergies/Adverse Reactions: Allergy/AdvReac Type Severity Reaction Status Date / Time [place] Allergy Mild Rash Verified 05/08/18 15:36 cephalexin [From Keflex] Allergy Difficulty Verified 05/08/18 15:36 Breathing clarithromycin [From Biaxin] Allergy Difficulty Verified 05/08/18 15:36 Breathing Penicillins Allergy Hives Verified 05/08/18 15:36 Sulfa (Sulfonamide Allergy Blister Verified 05/08/18 15:36 Antibiotics) sumatriptan [From Imitrex] Allergy Difficulty Verified 05/08/18 15:36 Breathing zonisamide [From Zonegran] Allergy Blister Verified 05/08/18 15:36 benzoin AdvReac Rash Verified 05/08/18 15:36 celecoxib [From Celebrex] AdvReac Chest Pain Verified 05/08/18 15:36 naproxen AdvReac Gastrointestinal Verified 05/08/18 15:36 Upset ondansetron AdvReac Rash Verified 05/08/18 15:36 [From Zofran (as hydrochloride)] terbutaline [From Brethine] AdvReac Rash Verified 05/08/18 15:36 topiramate [From Topamax] AdvReac Blister Verified 05/08/18 15:36 Date of admission: 09/02/18 03:14 Primary care physician: Ina Vela Discharging clinician: Nichol Le Anticipated date of discharge: 09/03/18 Labs on day of discharge: Labs from last 24 hours 09/03/18 09/02/18 09/02/18 03:10 17:37 10:46 WBC 9.6 D RBC 4.44 Hgb 13.5 Hct 40.9 MCV 92.1 MCH 30.4 MCHC 33.0 RDW 14.0 Plt Count 233 MPV 8.6 L Immature Gran % 0.3 Seg Neutrophils % 91.0 Lymphocytes % 7.2 Monocytes % 1.1 Eosinophils % 0.2 Basophils % 0.2 Neutrophils # 8.7 Lymphocytes # 0.7 Monocytes # 0.1 Eosinophils # 0.0 Basophils # 0.0 POC Glucose 82 95 - Impressions ITS Impressions Abdomen/Pelvis CT 09/02/18 23:20 IMPRESSION: Mildly dilated appendix increased in prominence compared to recent prior examination with mild periappendiceal fat stranding suggesting mild appendicitis. Stable bilateral nonobstructing stones in both kidneys including a 6 mm right midpole stone. No hydronephrosis. D/ / 09/02/2018 06:55:55 Eloy Diallo MD / ludwig Interpreting Provider: Eloy Diallo MD - Patient Status Disposition: Home, Self-Care Condition: Good Overall status at discharge: patient is progressing back to baseline - Discharge Instructions Instructions: Laparoscopic Appendectomy (DC) Follow Up With: Nichol Le MD [Partnered Physician] - 09/15/18 9:55 am Forms: ED Satisfaction Letter, Work/School Release Additional Instructions: No lifting more than 20 pounds for 2 weeks. Okay to take a shower in 24 hours. No tub baths or pools for 1 week. Okay to ride in the car wearing a seatbelt and climb steps. No driving until off narcotics for 24 hours and able to react safely Remove Steri-Strips in 1 week Do not take pain medicine/narcotics on an empty stomach it will likely cause nausea and possibly vomiting. If pain medication is too strong okay to break in half - Diet and Activity Activity: increase activity as tolerated Diet: advance to your usual diet - Attending Attestation I examined this patient and my medical decision-making was reviewed with the Resident Physician. I agree with the documented findings, disposition and treatment plan as described except to the extent set forth below. <Dragan Kaplan S - Last Filed: 09/03/18 12:42> Orders not resulted at time of discharge: Pending orders 09/02/18 17:08 Drug Screen, Serum [Drug Screen 9 Reflex Conf Qnt] Stat 09/02/18 23:59 Surgical Pathology [PTH] Routine - Discharge Diagnosis (1) Acute appendicitis Status: Acute Qualifiers: Acute appendicitis type: with localized peritonitis Appendicitis gangrene presence: without gangrene Appendicitis perforation presence: without perforation Appendicitis abscess presence: without abscess Qualified Code(s): K35.30 - Acute appendicitis with localized peritonitis, without perforation or gangrene General Surgery Exam Initial Vital Signs Temp Pulse Resp BP Pulse Ox 98.4 F 105 18 145/105 100 09/01/18 23:19 09/01/18 23:19 09/01/18 23:19 09/01/18 23:19 09/01/18 23:19 - Hospital Course Hospital course: Ms. Delgado is a 33 year old female - Time Spent with Patient Total time spent providing and/or coordinating discharge services: Date of admission: 09/02/18 03:14 Primary care physician: Ina Vela Labs on day of discharge: Labs from last 24 hours 09/03/18 09/02/18 09/02/18 03:10 17:37 10:46 WBC 9.6 D RBC 4.44 Hgb 13.5 Hct 40.9 MCV 92.1 MCH 30.4 MCHC 33.0 RDW 14.0 Plt Count 233 MPV 8.6 L Immature Gran % 0.3 Seg Neutrophils % 91.0 Lymphocytes % 7.2 Monocytes % 1.1 Eosinophils % 0.2 Basophils % 0.2 Neutrophils # 8.7 Lymphocytes # 0.7 Monocytes # 0.1 Eosinophils # 0.0 Basophils # 0.0 POC Glucose 82 95 - Impressions ITS Impressions Abdomen/Pelvis CT 09/02/18 23:20
[2018-09-03 11:11] VITALS: BP 107/73
[2018-09-06 02:32] LABS: Amphetamines NEGATIVE ng/mL (Cutoff 30); Benzodiazepines NEGATIVE ng/mL (Cutoff 75); Cocaine NEGATIVE ng/mL (Cutoff 30); Methadone NEGATIVE ng/mL (Cutoff 40); Methamphetamines NEGATIVE ng/mL (Cutoff 30); Opiates NEGATIVE ng/mL (Cutoff 30); Phencyclidine NEGATIVE ng/mL (Cutoff 15)
[2018-09-06 08:22] LABS: Barbiturates POSITIVE ng/mL (Cutoff 75)
[2018-09-09 11:45] LABS: Amobarbital Quant <50 ng/mL; Pentobarbital Quant <50 ng/mL; Phenobarbital Quant <50 ng/mL
[2018-09-09 12:40] LABS: Butalbital Quant 2268 ng/mL; Secobarbital Quant <50 ng/mL
== END 2018-09-03 14:07 | disposition home or self-care (01) ==
LOC: EMEROOARM 23:13 → 3ANU 23:13
PROVIDERS: ADMIT Surgery; ATTEND Surgery

== ENCOUNTER 2019-05-08 20:26 | Inpatient (IN) ==
[2019-05-08 21:10] LABS: Bilirubin,Urine Negative (Negative); Blood,Urine Small (Negative); Clarity,Urine Clear (Clear); Color,Urine Yellow (Yellow); Glucose,Urine (UA) Normal (Normal); Ketones,Urine Negative (Negative); Leukocyte Esterase,Urine Negative (Negative); Nitrite,Urine Negative (Negative); Protein,Urine Negative (Neg-Trace); Specific Gravity,Urine 1.024 (1.010-1.025); Urobilinogen,Urine Normal (Normal)
[2019-05-08 21:11] LABS: Basophils % 0.7 %; Eosinophils % 0.7 %; Hematocrit 37.9 % (35.3-44.9); Immature Granulocytes % 0.2 % (0-4); Lymphocytes # 1.7 K/mcL (0.6-4.6); Lymphocytes % 40.8 %; Mean Corpuscular HGB Conc 34.3 g/dL (31.6-35.5); Mean Corpuscular Hemoglobin 31.8 pg (28.0-33.3); Mean Corpuscular Volume 92.7 fL (83.0-100.0); Mean Platelet Volume 8.5 fL (9.4-12.4); Monocytes # 0.4 K/mcL (0.0-1.3); Monocytes % 10.6 %; Neutrophils # 1.9 K/mcL (1.6-8.9); Platelet Count 243 K/mcL (140-400); Red Blood Count 4.09 M/mcL (3.82-4.97); Red Cell Distribution Width 13.2 % (11.5-14.5); White Blood Count 4.1 K/mcL (4.3-11.1)
[2019-05-08 21:13] LABS: Bacteria,Urine None Seen per hpf (None-Few); Hyaline Casts,Urine None Seen per lpf (None-Few); Squamous Epithelial Cell,Urine Many per lpf (None-Few); WBC,Urine 0-3 per hpf (0-3)
[2019-05-08 21:21] LABS: Amphetamine Screen,Urine Negative ng/mL (Cutoff=1000); Barbiturate Screen,Urine Positive ng/mL (Cutoff=200); Benzodiazepines Screen,Urine Negative ng/mL (Cutoff=200); Cannabinoid Screen,Urine Negative ng/mL (Cutoff = 50); Cocaine Screen,Urine Negative ng/mL (Cutoff= 300); Opiate Screen,Urine Negative ng/mL (Cutoff=300); Phencyclidine Screen,Urine Negative ng/mL (Cutoff=25)
[2019-05-08 21:29] LABS: Acetaminophen 42 mcg/mL (10-20); BUN/Creatinine Ratio 9 (6-26); Blood Urea Nitrogen 8 mg/dL (6-20); Calcium 9.2 mg/dL (8.6-10.3); Carbon Dioxide 19 mEq/L (23-29); Chloride 111 mEq/L (98-107); Ethanol < 10 mg/dL (Less than 10); Glucose 98 mg/dL (70-105); Osmolality,Calculated 288 (280-300); Potassium 3.6 mEq/L (3.5-5.1); Salicylate < 2.5 mg/dL (15.0-30.0); Sodium 140 mEq/L (136-145); eGFR For African Americans > 60 (> 60); eGFR For Non-African Americans > 60 (> 60)
--- NOTE | 2019-05-08 21:41 | Emergency Department Note ---
Disposition Clinical Impression: Suicidal ideation, Deliberate self-cutting Disposition: Still a Patient Condition: Good Referrals: NONE,PCP [Primary Care Provider] - Forms: ED Satisfaction Letter Time of Disposition: 21:43 Psych HPI - General Chief Complaint: ED Psychiatric Symptoms Stated Complaint: cutting/psych Time Seen by Provider: 05/08/19 20:48 Source: patient Mode of arrival: ambulatory Limitations: no limitations Nursing Notes Reviewed: Yes Vital Signs Reviewed: Yes - History of Present Illness HPI Narrative: 34 year old female presents to the ED with complaints of cuting herself today with intentions of hurting of herself and SI secondary to losing her daughter one year ago. PAtient is tearful at bedside and complaing of knee and ankle pain. Denies any trauma to the area. She states that she cut herself with a po cket knife and that she is oterwhise up to date on her tetanus shot. Goldie states that her symptoms are worsening. she does not have a plan. Patient is also having a headache but states this is simliar ot her migraines int he past and is typically induced by stress, states that it has not changed in character or duration. Goldie is requesting therapy for her migraine. States she also has chronic right foot and left knee pain that otherwise has not improved in years but has not had any recent injury to the area. - Related Data Home Medications Medication Instructions Recorded Confirmed Acetaminophen/Butalbital/Caffe 1 cap PO Q6HR PRN 05/08/18 09/02/18 [Fioricet] Albuterol Sulfate [Ventolin Hfa] 2 puff IH Q4H PRN 05/08/18 09/02/18 Dicyclomine [Bentyl] 20 mg PO TID 05/08/18 09/02/18 Gabapentin [Neurontin] 300 mg PO TID 05/08/18 09/02/18 HydrOXYzine Pamoate [Vistaril] 50 mg PO TID 05/08/18 09/02/18 Promethazine [Phenergan] 25 mg PO Q8HR PRN 05/08/18 09/02/18 Propranolol [Inderal] 10 mg PO BID 05/08/18 09/02/18 Quetiapine Fumarate [Seroquel] 400 mg PO HS 05/08/18 05/08/19 Sucralfate [Carafate] 1 gm PO BID 05/08/18 09/02/18 levETIRAcetam [Roweepra] 500 mg PO BID 05/08/18 09/02/18 Docusate [Colace] 100 mg PO DAILY PRN 09/02/18 09/02/18 Fexofenadine HCl 180 mg PO DAILY 09/02/18 09/02/18 Fluticasone Propionate [Allergy 1 spr NS DAILY 09/02/18 09/02/18 Relief] Duloxetine HCl [Cymbalta] 60 mg PO 05/08/19 LevETIRAcetam [Keppra] 500 mg PO BID 05/08/19 05/08/19 Previous Rx's Medication Instructions Recorded Meloxicam [Mobic] 15 mg PO DAILY PRN #5 tab 09/10/18 Metoclopramide [Reglan] 10 mg PO QIDAC #12 tablet 10/05/18 Promethazine [Phenergan] 25 mg RC Q8HR #12 supp.rect 10/07/18 Promethazine [Phenergan] 25 mg PO Q8HR PRN #10 tablet 11/25/18 Promethazine [Phenergan] 25 mg RC Q8HR PRN #10 supp.rect 11/25/18 Allergies Allergy/AdvReac Type Severity Reaction Status Date / Time [place] Allergy Mild Rash Verified 10/25/18 20:39 cephalexin [From Keflex] Allergy Difficulty Verified 10/25/18 20:39 Breathing clarithromycin [From Biaxin] Allergy Difficulty Verified 10/25/18 20:39 Breathing Penicillins Allergy Hives Verified 10/25/18 20:39 Sulfa (Sulfonamide Allergy Blister Verified 10/25/18 20:39 Antibiotics) sumatriptan [From Imitrex] Allergy Difficulty Verified 10/25/18 20:39 Breathing zonisamide [From Zonegran] Allergy Blister Verified 10/25/18 20:39 benzoin AdvReac Rash Verified 10/25/18 20:39 celecoxib [From Celebrex] AdvReac Chest Pain Verified 10/25/18 20:39 naproxen AdvReac Gastrointestinal Verified 10/25/18 20:39 Upset ondansetron AdvReac Rash Verified 10/25/18 20:39 [From Zofran (as hydrochloride)] terbutaline [From Brethine] AdvReac Rash Verified 10/25/18 20:39 topiramate [From Topamax] AdvReac Blister Verified 10/25/18 20:39 All systems ED: reviewed and negative except as stated. Review of Systems: As Per HPI Constitutional: Denies: fever, chills, weakness, weight change Eyes: Denies: eye pain, eye discharge, vision change ENT ED: Denies: ear pain, throat pain, dental pain, hearing loss, epistaxis, congestion, dysphagia Cardiovascular: Denies: chest pain, palpitations, dyspnea on exertion, edema, syncope Respiratory: Denies: cough, dyspnea, wheezes, hemoptysis, stridor Gastrointestinal: Denies: abdominal pain, nausea, vomiting, diarrhea, constipation, hematemesis, melena, hematochezia Genitourinary: Denies: dysuria, frequency, hematuria, discharge Musculoskeletal: Reports: as per HPI. Denies: back pain, neck pain, arthralgia, myalgia Integumentary: Denies: rash, abrasion, lesions Neurological: Reports: headache. Denies: weakness, numbness, paresthesias, confusion, abnormal gait, vertigo Psychiatric: Reports: suicidal thoughts (cutting). Denies: anxiety, depression, homicidal thoughts, auditory hallucinations, visual hallucinations Endocrine: Denies: fatigue Hematological/Lymphatic: Denies: easy bleeding, easy bruising Allergic/Immunologic: Denies: facial swelling, urticaria Past Medical History - Past Medical History Medical history: Reports: asthma, hepatitis, hyperlipidemia, kidney stones, migraine, seizures, other Surgical history: Reports: appendectomy, cholecystectomy Psychiatric history: Reports: anxiety, bipolar, depression, PTSD [employer] history: Reports: bilateral tubal ligation, other - Social History Smoking Status: Never smoker Smokeless Tobacco Status: No Alcohol use: Reports: rarely Drug use: Reports: none Physical Exam - General Limitations: no limitations General appearance: alert, in no apparent distress - Head Head exam: atraumatic, normocephalic, normal inspection - Eye Eye exam: Present: normal appearance, PERRL, EOMI - Expanded Eye Exam Pupils: Bilateral: reactive - ENT ENT exam: normal exam, normal oropharynx, mucous membranes moist - Expanded ENT Exam External ear exam: Present: normal external inspection Mouth exam: Present: normal external inspection Teeth exam: Present: normal inspection Throat exam: Present: normal inspection - Neck Neck exam: Present: normal inspection, full ROM, trachea midline - Chest Chest inspection: Present: normal inspection, symmetric chest wall rise - Respiratory Respiratory exam: Present: normal lung sounds bilaterally - Cardiovascular Cardiovascular exam: Present: normal rhythm, tachycardia, normal heart sounds - Abdominal Exam Abdominal exam: Present: soft, Non-Tender. Absent: tenderness, distention, guarding, rebound, rigidity - Extremities Exam Extremities exam: Present: normal inspection, full ROM. Absent: tenderness, pedal edema - Expanded Upper Extremity Exam Shoulder exam: Present: normal inspection, full ROM Arm exam: Present: normal inspection, full ROM Elbow exam: Present: normal inspection, full ROM Forearm/Wrist exam: Present: normal inspection, full ROM Hand exam: Present: normal inspection, full ROM Vascular exam: Normal: capillary refill, radial pulse - Expanded Lower Extremity Exam Hip/Pelvis exam: Present: normal inspection, full ROM Upper leg exam: Present: normal inspection, full ROM Knee exam: Present: normal inspection, full ROM Lower leg exam: Present: normal inspection, full ROM Ankle exam: Present: normal inspection, full ROM Foot/toe exam: Present: normal inspection, full ROM Neurovascular/Tendon exam: Absent: motor deficit, sensory deficit, tendon deficit - Back Exam Back exam: Present: normal inspection, full ROM. Absent: tenderness - Neurological Exam Neurological exam: Present: alert, oriented X3 - Expanded Neurological Exam Patient oriented to: Present: person, place, time Coma Scale Eye Opening: Spontaneous Coma Scale Motor Response: Obeys Commands Coma Scale Verbal Response: Oriented Coma Scale Total: 15 - Psychiatric Psychiatric exam: Present: normal affect, normal mood - Skin Skin exam: Present: warm, dry, intact, normal color - Expanded Skin Exam 1 - linear cutting romero x 4 horixontal and vertical/diagonal Course Course Narrative: I will do a medical clearance and then consult 1A. - Reevaluation(s) Reevaluation #1: will sign goldie out to Dr. Taylor. Plan is to followup on 1A recommednations. Patinet is resting comfortably at bedside and in no acute distress. [place] slipped signed. Time: 22:40 Vital Signs Temperature 98.5 F 07/01/19 20:33 Pulse Rate 111 05/08/19 20:33 Respiratory Rate 16 05/08/19 20:33 Blood Pressure 155/88 05/08/19 20:33 O2 Sat by Pulse Oximetry 98 05/08/19 20:33 Temperature 98.5 F 05/08/19 20:33 Pulse Rate 111 05/08/19 20:33 Respiratory Rate 16 05/08/19 20:33 Blood Pressure 155/88 05/08/19 20:33 O2 Sat by Pulse Oximetry 98 05/08/19 20:33 Oxygen Delivery Oxygen Delivery Room Air Psych - Lab Data Result diagrams: 05/08/19 20:59 05/08/19 20:59 Lab Results 05/08/19 05/08/19 05/08/19 Range/Units 20:48 20:48 20:48 WBC (4.3-11.1) K/mcL RBC (3.82-4.97) M/mcL Hgb (11.5-15.4) g/dL Hct (35.3-44.9) % MCV (83.0-100.0) fL MCH (28.0-33.3) pg MCHC (31.6-35.5) g/dL RDW (11.5-14.5) % Plt Count (140-400) K/mcL MPV (9.4-12.4) fL Immature Gran % (0-4) % Seg Neutrophils % % Lymphocytes % % Monocytes % % Eosinophils % % Basophils % % Neutrophils # (1.6-8.9) K/mcL Lymphocytes # (0.6-4.6) K/mcL Monocytes # (0.0-1.3) K/mcL Eosinophils # (0.0-0.6) K/mcL Basophils # (0.0-0.2) K/mcL Sodium (136-145) mEq/L Potassium (3.5-5.1) mEq/L Chloride (98-107) mEq/L Carbon Dioxide (23-29) mEq/L BUN (6-20) mg/dL Creatinine (0.60-1.20) mg/dL Est GFR ( Amer) (> 60) Est GFR (Non-Af Amer) (> 60) BUN/Creatinine Ratio (6-26) Glucose (70-105) mg/dL Calculated Osmolality (280-300) Calcium (8.6-10.3) mg/dL Urine Color Yellow (Yellow) Urine Clarity Clear (Clear) Urine pH 6.0 (5.0-8.0) pH Units Ur Specific [place] 1.024 (1.010-1.025) Urine Protein Negative (Neg-Trace) mg/dL Urine Glucose (UA) Normal (Normal) mg/dL Urine Ketones Negative (Negative) mg/dL Urine Blood Small H (Negative) Urine Nitrite Negative (Negative) Urine Bilirubin Negative (Negative) Urine Urobilinogen Normal (Normal) mg/dL Ur Leukocyte Esterase Negative (Negative) Urine Microscopic RBC 5-15 H (0-3) per hpf Urine Microscopic WBC 0-3 (0-3) per hpf Ur Squamous Epith Cells Many H (None-Few) per lpf Urine Bacteria None Seen (None-Few) per hpf Hyaline Casts None Seen (None-Few) per lpf Urine Test Negative (Negative) Salicylates (15.0-30.0) mg/dL Urine Opiates Screen Negative (Sbtrok=400) ng/mL Ur Buprenorphine Scrn Negative (Cutoff=5) ng/mL Acetaminophen (10-20) mcg/mL Ur Barbiturates Screen Positive H (Ikqxsz=064) ng/mL Ur Phencyclidine Scrn Negative (Cutoff=25) ng/mL Ur Amphetamines Screen Negative (Olpexq=3515) ng/mL U Benzodiazepines Scrn Negative (Ioyvga=114) ng/mL Urine Cocaine Screen Negative (Cutoff= 300) ng/mL U Marijuana (THC) Screen Negative (Cutoff = 50) ng/mL Ur Drug Screen Interp See Below Ethyl Alcohol (Less than 10) mg/dL 05/08/19 05/08/19 Range/Units 20:59 20:59 WBC 4.1 L (4.3-11.1) K/mcL RBC 4.09 (3.82-4.97) M/mcL Hgb 13.0 (11.5-15.4) g/dL Hct 37.9 (35.3-44.9) % MCV 92.7 (83.0-100.0) fL MCH 31.8 (28.0-33.3) pg MCHC 34.3 (31.6-35.5) g/dL RDW 13.2 (11.5-14.5) % Plt Count 243 (140-400) K/mcL MPV 8.5 L (9.4-12.4) fL Immature Gran % 0.2 (0-4) % Seg Neutrophils % 47.0 % Lymphocytes % 40.8 % Monocytes % 10.6 % Eosinophils % 0.7 % Basophils % 0.7 % Neutrophils # 1.9 (1.6-8.9) K/mcL Lymphocytes # 1.7 (0.6-4.6) K/mcL Monocytes # 0.4 (0.0-1.3) K/mcL Eosinophils # 0.0 (0.0-0.6) K/mcL Basophils # 0.0 (0.0-0.2) K/mcL Sodium 140 (136-145) mEq/L Potassium 3.6 (3.5-5.1) mEq/L Chloride 111 H (98-107) mEq/L Carbon Dioxide 19 L (23-29) mEq/L BUN 8 (6-20) mg/dL Creatinine 0.88 (0.60-1.20) mg/dL Est GFR ( Amer) > 60 (> 60) Est GFR (Non-Af Amer) > 60 (> 60) BUN/Creatinine Ratio 9 (6-26) Glucose 98 (70-105) mg/dL Calculated Osmolality 288 (280-300) Calcium 9.2 (8.6-10.3) mg/dL Urine Color (Yellow) Urine Clarity (Clear) Urine pH (5.0-8.0) pH Units Ur Specific [place] (1.010-1.025) Urine Protein (Neg-Trace) mg/dL Urine Glucose (UA) (Normal) mg/dL Urine Ketones (Negative) mg/dL Urine Blood (Negative) Urine Nitrite (Negative) Urine Bilirubin (Negative) Urine Urobilinogen (Normal) mg/dL Ur Leukocyte Esterase (Negative) Urine Microscopic RBC (0-3) per hpf Urine Microscopic WBC (0-3) per hpf Ur Squamous Epith Cells (None-Few) per lpf Urine Bacteria (None-Few) per hpf Hyaline Casts (None-Few) per lpf Urine Test (Negative) Salicylates < 2.5 L (15.0-30.0) mg/dL Urine Opiates Screen (Iszlvu=616) ng/mL Ur Buprenorphine Scrn (Cutoff=5) ng/mL Acetaminophen 42 H (10-20) mcg/mL Ur Barbiturates Screen (Ymqxel=189) ng/mL Ur Phencyclidine Scrn (Cutoff=25) ng/mL Ur Amphetamines Screen (Wknsor=8473) ng/mL U Benzodiazepines Scrn (Oibllh=581) ng/mL Urine Cocaine Screen (Cutoff= 300) ng/mL U Marijuana (THC) Screen (Cutoff = 50) ng/mL Ur Drug Screen Interp Ethyl Alcohol < 10 (Less than 10) mg/dL Psychiatric Medical Clearance - Medical Clearance Checklist Medical History: No Social History Section defined Current Vitals: Last Vital Signs Temp 98.5 F 05/08/19 20:33 Pulse 111 05/08/19 20:33 Resp 16 05/08/19 20:33 BP 155/88 05/08/19 20:33 Pulse Ox 98 05/08/19 20:33 Psychiatric Lab Panel: Drug Levels and Toxicity 05/08/19 05/08/19 20:48 20:59 Urine Opiates Screen Negative Acetaminophen 42 H Ur Barbiturates Screen Positive H Ur Phencyclidine Scrn Negative Ur Amphetamines Screen Negative U Benzodiazepines Scrn Negative Urine Cocaine Screen Negative U Marijuana (THC) Screen Negative Ethyl Alcohol < 10 Abnormal Labs: Abnormal lab results WBC 4.1 K/mcL (4.3-11.1) L 05/08/19 20:59 MPV 8.5 fL (9.4-12.4) L 05/08/19 20:59 Chloride 111 mEq/L (98-107) H 05/08/19 20:59 Carbon Dioxide 19 mEq/L (23-29) L 05/08/19 20:59 Small (Negative) H 05/08/19 20:48 5-15 per hpf (0-3) H 05/08/19 20:48 Ur Squamous Epith Cells Many per lpf (None-Few) H 05/08/19 20:48 Salicylates < 2.5 mg/dL (15.0-30.0) L 05/08/19 20:59 Acetaminophen 42 mcg/mL (10-20) H 05/08/19 20:59 Ur Barbiturates Screen Positive ng/mL (Dgtwgr=187) H 05/08/19 20:48 Statement of Medical Clearance: I have evaluated the patient, reviewed diagnostic information, and certify that the patient's medical condition is sufficiently stable that transfer to the psychiatric unit does not pose a significant risk of deterioration.
[2019-05-08] MEDS ORDERED: Ketorolac 30 MG/ML VIAL IM ONE (22:19)
--- NOTE | 2019-05-08 23:02 | Emergency Department Note ---
Disposition Clinical Impression: Suicidal ideation, Deliberate self-cutting Disposition: Admitted As Inpatient Condition: Good Referrals: NONE,PCP [Primary Care Provider] - Forms: ED Satisfaction Letter Time of Disposition: 00:02 General Adult HPI - General Chief complaint: ED Psychiatric Symptoms Stated complaint: cutting/psych Time Seen by Provider: 05/08/19 20:48 Source: patient Mode of arrival: ambulatory Limitations: no limitations - History of Present Illness Pain Scale: 7 - Related Data Home Medications Medication Instructions Recorded Confirmed Acetaminophen/Butalbital/Caffe 1 cap PO Q6HR PRN 05/08/18 09/02/18 [Fioricet] Albuterol Sulfate [Ventolin Hfa] 2 puff IH Q4H PRN 05/08/18 09/02/18 Dicyclomine [Bentyl] 20 mg PO TID 05/08/18 09/02/18 Gabapentin [Neurontin] 300 mg PO TID 05/08/18 09/02/18 HydrOXYzine Pamoate [Vistaril] 50 mg PO TID 05/08/18 09/02/18 Promethazine [Phenergan] 25 mg PO Q8HR PRN 05/08/18 09/02/18 Propranolol [Inderal] 10 mg PO BID 05/08/18 09/02/18 Quetiapine Fumarate [Seroquel] 400 mg PO HS 05/08/18 05/08/19 Sucralfate [Carafate] 1 gm PO BID 05/08/18 09/02/18 levETIRAcetam [Roweepra] 500 mg PO BID 05/08/18 09/02/18 Docusate [Colace] 100 mg PO DAILY PRN 09/02/18 09/02/18 Fexofenadine HCl 180 mg PO DAILY 09/02/18 09/02/18 Fluticasone Propionate [Allergy 1 spr NS DAILY 09/02/18 09/02/18 Relief] Duloxetine HCl [Cymbalta] 60 mg PO 05/08/19 LevETIRAcetam [Keppra] 500 mg PO BID 05/08/19 05/08/19 Previous Rx's Medication Instructions Recorded Meloxicam [Mobic] 15 mg PO DAILY PRN #5 tab 09/10/18 Metoclopramide [Reglan] 10 mg PO QIDAC #12 tablet 10/05/18 Promethazine [Phenergan] 25 mg RC Q8HR #12 supp.rect 10/07/18 Promethazine [Phenergan] 25 mg PO Q8HR PRN #10 tablet 11/25/18 Promethazine [Phenergan] 25 mg RC Q8HR PRN #10 supp.rect 11/25/18 Allergies Allergy/AdvReac Type Severity Reaction Status Date / Time [place] Allergy Mild Rash Verified 10/25/18 20:39 cephalexin [From Keflex] Allergy Difficulty Verified 10/25/18 20:39 Breathing clarithromycin [From Biaxin] Allergy Difficulty Verified 10/25/18 20:39 Breathing Penicillins Allergy Hives Verified 10/25/18 20:39 Sulfa (Sulfonamide Allergy Blister Verified 10/25/18 20:39 Antibiotics) sumatriptan [From Imitrex] Allergy Difficulty Verified 10/25/18 20:39 Breathing zonisamide [From Zonegran] Allergy Blister Verified 10/25/18 20:39 benzoin AdvReac Rash Verified 10/25/18 20:39 celecoxib [From Celebrex] AdvReac Chest Pain Verified 10/25/18 20:39 naproxen AdvReac Gastrointestinal Verified 10/25/18 20:39 Upset ondansetron AdvReac Rash Verified 10/25/18 20:39 [From Zofran (as hydrochloride)] terbutaline [From Brethine] AdvReac Rash Verified 10/25/18 20:39 topiramate [From Topamax] AdvReac Blister Verified 10/25/18 20:39 Constitutional: Denies: fever, chills, weakness, weight change Eyes: Denies: eye pain, eye discharge, vision change ENT ED: Denies: ear pain, throat pain, dental pain, hearing loss, epistaxis, congestion, dysphagia Cardiovascular: Denies: chest pain, palpitations, dyspnea on exertion, edema, syncope Respiratory: Denies: cough, dyspnea, wheezes, hemoptysis, stridor Gastrointestinal: Denies: abdominal pain, nausea, vomiting, diarrhea, constipation, hematemesis, melena, hematochezia Genitourinary: Denies: dysuria, frequency, hematuria, discharge Musculoskeletal: Reports: as per HPI. Denies: back pain, neck pain, arthralgia, myalgia Integumentary: Denies: rash, abrasion, lesions Neurological: Reports: headache. Denies: weakness, numbness, paresthesias, confusion, abnormal gait, vertigo Psychiatric: Reports: suicidal thoughts (cutting). Denies: anxiety, depression, homicidal thoughts, auditory hallucinations, visual hallucinations Endocrine: Denies: fatigue Hematological/Lymphatic: Denies: easy bleeding, easy bruising Allergic/Immunologic: Denies: facial swelling, urticaria Past Medical History - Past Medical History Medical history: Reports: asthma, hepatitis, hyperlipidemia, kidney stones, migraine, seizures, other Surgical history: Reports: appendectomy, cholecystectomy Psychiatric history: Reports: anxiety, bipolar, depression, PTSD [employer] history: Reports: bilateral tubal ligation, other - Social History Smoking Status: Never smoker Smokeless Tobacco Status: No Alcohol use: Reports: rarely Drug use: Reports: none Physical Exam - General Limitations: no limitations General appearance: alert, in no apparent distress Course Course Narrative: Patient is otherwise stable at this time. Sign out was completed by the daytime physician Dr. Watkins. Detailed review the presentation symptoms medical intervention as well as screening evaluation were discussed. Patient is waiting for evaluation by the psychiatric team in the disposition will be determined. She otherwise has no other acute medical issues. Repeat physical exam will be completed by myself prior to disposition. See previous documentation the physical exam, medical intervention, medical decision-making disposition in the previous provider's note. No immediate intervention required at this time. Will monitor closely until disposition is determined. - Reevaluation(s) Reevaluation #1: Patient is going to be accepted to 1a reevaluation psychiatric treatment. Gideon slip will be signed. Patient will be admitted. No other management required here in emergency department. Time: 00:02 Vital Signs Temperature 98.5 F 05/08/19 20:33 Pulse Rate 111 05/08/19 20:33 Respiratory Rate 16 05/08/19 20:33 Blood Pressure 155/88 05/08/19 20:33 O2 Sat by Pulse Oximetry 98 05/08/19 20:33 Temperature 98.5 F 05/08/19 20:33 Pulse Rate 111 05/08/19 20:33 Respiratory Rate 16 05/08/19 20:33 Blood Pressure 155/88 05/08/19 20:33 O2 Sat by Pulse Oximetry 98 05/08/19 20:33 Oxygen Delivery Oxygen Delivery Room Air Medical Decision Making - MDM Narrative Medical decision making narrative: Suicidal ideation, psychiatric evaluation - Medical Records Medical records reviewed: Yes I reviewed the patient's medical records. - Lab Data Lab results reviewed: Yes I reviewed the patient's lab results. Result diagrams: 05/08/19 20:59 05/08/19 20:59 Lab Results 05/08/19 05/08/19 05/08/19 Range/Units 20:48 20:48 20:48 WBC (4.3-11.1) K/mcL RBC (3.82-4.97) M/mcL Hgb (11.5-15.4) g/dL Hct (35.3-44.9) % MCV (83.0-100.0) fL MCH (28.0-33.3) pg MCHC (31.6-35.5) g/dL RDW (11.5-14.5) % Plt Count (140-400) K/mcL MPV (9.4-12.4) fL Immature Gran % (0-4) % Seg Neutrophils % % Lymphocytes % % Monocytes % % Eosinophils % % Basophils % % Neutrophils # (1.6-8.9) K/mcL Lymphocytes # (0.6-4.6) K/mcL Monocytes # (0.0-1.3) K/mcL Eosinophils # (0.0-0.6) K/mcL Basophils # (0.0-0.2) K/mcL Sodium (136-145) mEq/L Potassium (3.5-5.1) mEq/L Chloride (98-107) mEq/L Carbon Dioxide (23-29) mEq/L BUN (6-20) mg/dL Creatinine (0.60-1.20) mg/dL Est GFR ( Amer) (> 60) Est GFR (Non-Af Amer) (> 60) BUN/Creatinine Ratio (6-26) Glucose (70-105) mg/dL Calculated Osmolality (280-300) Calcium (8.6-10.3) mg/dL Urine Color Yellow (Yellow) Urine Clarity Clear (Clear) Urine pH 6.0 (5.0-8.0) pH Units Ur Specific [place] 1.024 (1.010-1.025) Urine Protein Negative (Neg-Trace) mg/dL Urine Glucose (UA) Normal (Normal) mg/dL Urine Ketones Negative (Negative) mg/dL Urine Blood Small H (Negative) Urine Nitrite Negative (Negative) Urine Bilirubin Negative (Negative) Urine Urobilinogen Normal (Normal) mg/dL Ur Leukocyte Esterase Negative (Negative) Urine Microscopic RBC 5-15 H (0-3) per hpf Urine Microscopic WBC 0-3 (0-3) per hpf Ur Squamous Epith Cells Many H (None-Few) per lpf Urine Bacteria None Seen (None-Few) per hpf Hyaline Casts None Seen (None-Few) per lpf Urine Test Negative (Negative) Salicylates (15.0-30.0) mg/dL Urine Opiates Screen Negative (Qtqynh=878) ng/mL Ur Buprenorphine Scrn Negative (Cutoff=5) ng/mL Acetaminophen (10-20) mcg/mL Ur Barbiturates Screen Positive H (Whohzi=625) ng/mL Ur Phencyclidine Scrn Negative (Cutoff=25) ng/mL Ur Amphetamines Screen Negative (Jhhloe=4675) ng/mL U Benzodiazepines Scrn Negative (Wzschm=744) ng/mL Urine Cocaine Screen Negative (Cutoff= 300) ng/mL U Marijuana (THC) Screen Negative (Cutoff = 50) ng/mL Ur Drug Screen Interp See Below Ethyl Alcohol (Less than 10) mg/dL 05/08/19 05/08/19 Range/Units 20:59 20:59 WBC 4.1 L (4.3-11.1) K/mcL RBC 4.09 (3.82-4.97) M/mcL Hgb 13.0 (11.5-15.4) g/dL Hct 37.9 (35.3-44.9) % MCV 92.7 (83.0-100.0) fL MCH 31.8 (28.0-33.3) pg MCHC 34.3 (31.6-35.5) g/dL RDW 13.2 (11.5-14.5) % Plt Count 243 (140-400) K/mcL MPV 8.5 L (9.4-12.4) fL Immature Gran % 0.2 (0-4) % Seg Neutrophils % 47.0 % Lymphocytes % 40.8 % Monocytes % 10.6 % Eosinophils % 0.7 % Basophils % 0.7 % Neutrophils # 1.9 (1.6-8.9) K/mcL Lymphocytes # 1.7 (0.6-4.6) K/mcL Monocytes # 0.4 (0.0-1.3) K/mcL Eosinophils # 0.0 (0.0-0.6) K/mcL Basophils # 0.0 (0.0-0.2) K/mcL Sodium 140 (136-145) mEq/L Potassium 3.6 (3.5-5.1) mEq/L Chloride 111 H (98-107) mEq/L Carbon Dioxide 19 L (23-29) mEq/L BUN 8 (6-20) mg/dL Creatinine 0.88 (0.60-1.20) mg/dL Est GFR ( Amer) > 60 (> 60) Est GFR (Non-Af Amer) > 60 (> 60) BUN/Creatinine Ratio 9 (6-26) Glucose 98 (70-105) mg/dL Calculated Osmolality 288 (280-300) Calcium 9.2 (8.6-10.3) mg/dL Urine Color (Yellow) Urine Clarity (Clear) Urine pH (5.0-8.0) pH Units Ur Specific [place] (1.010-1.025) Urine Protein (Neg-Trace) mg/dL Urine Glucose (UA) (Normal) mg/dL Urine Ketones (Negative) mg/dL Urine Blood (Negative) Urine Nitrite (Negative) Urine Bilirubin (Negative) Urine Urobilinogen (Normal) mg/dL Ur Leukocyte Esterase (Negative) Urine Microscopic RBC (0-3) per hpf Urine Microscopic WBC (0-3) per hpf Ur Squamous Epith Cells (None-Few) per lpf Urine Bacteria (None-Few) per hpf Hyaline Casts (None-Few) per lpf Urine Test (Negative) Salicylates < 2.5 L (15.0-30.0) mg/dL Urine Opiates Screen (Yaeqbv=530) ng/mL Ur Buprenorphine Scrn (Cutoff=5) ng/mL Acetaminophen 42 H (10-20) mcg/mL Ur Barbiturates Screen (Btshth=642) ng/mL Ur Phencyclidine Scrn (Cutoff=25) ng/mL Ur Amphetamines Screen (Mlodcp=6919) ng/mL U Benzodiazepines Scrn (Vbksal=087) ng/mL Urine Cocaine Screen (Cutoff= 300) ng/mL U Marijuana (THC) Screen (Cutoff = 50) ng/mL Ur Drug Screen Interp Ethyl Alcohol < 10 (Less than 10) mg/dL
[2019-05-09] MEDS ORDERED: MOM Conc 10 ML UD.LIQ PO PRN (00:34)
[2019-05-09] MEDS ORDERED: *HR* LORazepam 1 MG TABLET PO PRN (00:34)
[2019-05-09] MEDS ORDERED: Haloperidol Lactate 5 MG/ML VIAL IM PRN (00:34)
[2019-05-09] MEDS ORDERED: Ibuprofen 400 MG TABLET PO PRN (00:34)
[2019-05-09] MEDS ORDERED: Mag Hydrox/Al Hydrox/Simeth 30 ML UDC PO PRN (00:34)
[2019-05-09] MEDS ORDERED: *HR* LORazepam 2 MG/ML VIAL IM PRN (00:34)
[2019-05-09] MEDS ORDERED: hydrOXYzine pamoate 25 MG CAPSULE PO PRN (00:34)
[2019-05-09] MEDS: levETIRAcetam 250 MG TABLET PO SCH ×3 (01:49→21:42)
[2019-05-09] MEDS ORDERED: Acetaminophen/Butalbital/CaffeineTABLET PO PRN (13:17)
[2019-05-09] MEDS: Gabapentin 300 MG CAPSULE PO SCH ×2 (14:16→21:42)
[2019-05-10 08:39] VITALS: BP 113/79
[2019-05-10] MEDS: levETIRAcetam 250 MG TABLET PO SCH (08:43)
[2019-05-10] MEDS: Gabapentin 300 MG CAPSULE PO SCH (08:43)
[2019-05-10] MEDS ORDERED: Loratadine 10 MG TABLET PO SCH (09:00)
[2019-05-10] MEDS ORDERED: Cholecalciferol (D-3) 1,000 UNIT TABLET PO SCH (09:00)
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
--- NOTE | 2019-05-10 11:03 | Discharge Summary ---
Date of Encounter: 05/10/19 Time of Encounter: 11:00 Diagnosis - Discharge Diagnosis (1) Major depress dis, severe Status: Acute (2) Generalized anxiety disorder Status: Acute Medications - Discharge Medications Prescriptions: Escitalopram [Lexapro] 10 mg PO DAILY #30 tablet Prazosin [Minipress] 1 mg PO HS #30 capsule LevETIRAcetam [Keppra] 500 mg PO BID 05/08/19 [History] Albuterol Sulfate [Proventil Inhaler] 1 puff IH Q6H PRN 05/09/19 [History] Atorvastatin Calcium [Lipitor] 20 mg PO HS 05/09/19 [History] Butalbit/Acetamin/Caff/Codeine [Wumlwt-Mezj-Tpiatyfpeuj-Codein] 1 cap PO Q6H PRN 05/09/19 [History] Cholecalciferol (D-3) [Vitamin D] 1,000 unit PO DAILY 05/09/19 [History] Dicyclomine Hcl [Bentyl] 20 mg PO Q6H 05/09/19 [History] Fexofenadine HCl [Allergy Relief] 180 mg PO DAILY 05/09/19 [History] Fluticasone Propionate Nasal [Flonase] 2 spr NS DAILY PRN 05/09/19 [History] Gabapentin [Neurontin] 300 mg PO TID 05/09/19 [History] Ibuprofen 800 mg PO TID PRN 05/09/19 [History] Montelukast [Singulair] 10 mg PO HS 05/09/19 [History] [place]-3/Dha/Epa/Fish Oil [Fish Oil 1,000 mg Softgel] 1 cap PO BID 05/09/19 [History] Quetiapine Fumarate 400 mg PO HS 05/09/19 [History] Sucralfate [Carafate] 1 gm PO TIDWM 05/09/19 [History] Escitalopram [Lexapro] 10 mg PO DAILY #30 tablet 05/10/19 [Rx] Prazosin [Minipress] 1 mg PO HS #30 capsule 05/10/19 [Rx] Allergy/AdvReac Type Severity Reaction Status Date / Time [place] Allergy Mild Rash Verified 05/09/19 22:43 cephalexin [From Keflex] Allergy Difficulty Verified 05/09/19 22:43 Breathing clarithromycin [From Biaxin] Allergy Difficulty Verified 05/09/19 22:43 Breathing Penicillins Allergy Hives Verified 05/09/19 22:43 Sulfa (Sulfonamide Allergy Blister Verified 05/09/19 22:43 Antibiotics) sumatriptan [From Imitrex] Allergy Difficulty Verified 05/09/19 22:43 Breathing zonisamide [From Zonegran] Allergy Blister Verified 05/09/19 22:43 benzoin AdvReac Rash Verified 05/09/19 22:43 celecoxib [From Celebrex] AdvReac Chest Pain Verified 05/09/19 22:43 naproxen AdvReac Gastrointestinal Verified 05/09/19 22:43 Upset ondansetron AdvReac Rash Verified 05/09/19 22:43 [From Zofran (as hydrochloride)] terbutaline [From Brethine] AdvReac Rash Verified 05/09/19 22:43 topiramate [From Topamax] AdvReac Blister Verified 05/09/19 22:43 Results Procedures and tests throughout hospitalization: Completed Lab Orders Category Date Time Status Acetaminophen Stat Lab 05/08/19 20:59 Completed Basic Metabolic Panel Stat Lab 05/08/19 20:59 Completed Complete Blood Count [HEME] Stat Lab 05/08/19 20:59 Completed Drug Screen, Urine [UCHEM] Stat Lab 05/08/19 20:48 Completed Ethanol Stat Lab 05/08/19 20:59 Completed Test Result, Urine [URIN] Stat Lab 05/08/19 20:48 Completed Salicylate Stat Lab 05/08/19 20:59 Completed Urinalysis reflex Microscopic [URIN] Stat Lab 05/08/19 20:48 Completed Provider Date of admission: 05/09/19 00:26 Primary care physician: PCP NONE Consults: 05/09/19 01:31 Consult to Pastoral Services [CONS] Routine Comment: Discharging clinician: Elizabeth Cruz Psychiatry Exam - Constitutional Vitals: Temp Pulse Resp BP Pulse Ox 98 F 94 14 113/79 99 05/10/19 08:38 05/10/19 08:38 05/10/19 08:38 05/10/19 08:38 05/10/19 08:38 General appearance: age & developmentally appropriate, well-groomed, well- nourished - Musculoskeletal Gait: normal Station: relaxed Strength & Tone: normal for patient - Psychiatric Patient Orientation: Yes Person, Yes Time, Yes Place Level of alertness: Alert Behavior: calm, cooperative Psychomotor activity: Normal Eye Contact: Maintains Eye Contact Mood Description: Anxious Affect description: congruent with mood Speech Volume: Normal Speech pattern: normal rate, normal rhythm, normal tone, fluent, spontaneous Language & Vocabulary: consistent with education Thought Process: Linear, Goal Oriented Thought Content: No Suicidal ideation, No Homicidal ideation, No Overt delusions Perceptual Disturbances: No Auditory hallucinations, No Visual hallucinations Attention Span Ability: Capable of Focused Attention Memory Description: Grossly Intact Patient Reliability: Reliable Historian Fund of knowledge: Yes abstraction ability, Yes aware of current events Intelligence Estimate: Average Judgment: Fair Insight: Partial Hospital Course Hospital course: Ms. Delgado is a 34 year old female who was admitted for SI and cutting behaviors in addition to nightmares. Client was taking Seroquel and Cymbalta prior to admission. Client was getting benefit from the Seroquel but found the Cymbalta too activating. The Cymbalta was stopped in favor of Lexapro and Prazosin was started for the nightmares with good clinical results. Today client states her mood and anxiety levels have improved. She still endorses some depression and anxiety but states she feels "like myself" and "back to my baseline." Aware meds will take time to fully kick in. She is denying any further SI, intent, or plan. She is denying all urges to cut or self harm. She has a supportive fiancee who has agreed to lock up all sharps and who wants client to come home. Client states she did have nightmares last night but that they were less intense and that she slept through the night without waking up which is a definite improvement for her. Client feels hopeful that this med regimen will work for her. She is already linked with a prescriber and therapist and staff were able to get her appointments moved up. Client has been pleasant and engaged on the unit. She has attended and participated in groups. She has eaten and slept well. Client is denying SI/HI/AH/VH and is bright and future oriented today. She reports feeling stable for discharge. Total time spent with client greater than 30 minutes. Patient was educated of her diagnosis and the risks, benefits, and side effects of this treatment and alternative treatment options and was monitored for responsiveness and side effects. Mood, anxiety, sleep, appetite, and interest improved, as did future orientation. Self-harm thoughts subsided, thinking cleared, psychosis resolved, and mood stabilized. Patient was able to attend both individual and group therapy sessions as well as meeting with the psychiatrist daily and urged to discuss any medication or treatment issues or other concerns. The patient was educated primarily by verbal means about their diagnosis and manifestations in their life. The option for treatment including group and individual therapy programming was offered to the patient in the use of medications with all their potential risks, benefits, and side effects were discussed with the patient at length. The patient was given the opportunity to ask questions and was noted to participate in the treatment in the planning process. The patient felt ready and eager to be discharged from the inpatient psychiatric unit to continue on with treatment as an outpatient. The patient agreed that she is safe for this disposition. The patient was considered to be able to participate in informed consent and decision making with respect to medical, legal, and financial issues of the time of discharge. At the time of discharge the patient adamantly denied any concerns for lethality including suicidal or homicidal thoughts ideations or plans and was future oriented toward ongoing mental health care, medical follow-up and sobriety. - Time Spent with Patient Total time spent providing and/or coordinating discharge services: Greater than 30 minutes Assessment and Plan - Patient/Caregiver Discharge Instructions Activity: resume usual activities as tolerated Diet: regular diet - Follow up Plan Follow up with: Cristian Rodriguez [facility] [Outside] - 05/19/19 3:00 pm (You have an appointment scheduled with Bharati Jimenez on Sunday, May 19, 2019 at 3:00 PM for Counseling and Case Management. Please contact the office at least 24 hours in advance if you are unable to keep your appointment(s). ) Ina Vela [Advanced Practice Nurse] - 05/23/19 12:00 pm (You have an appointment scheduled with your primary care provider Ina Vela CNP on Thursday, May 23, 2019 at 12:00 PM. Please keep your primary care provider informed of any changes in your medications or medical conditions. Please contact the office at the number above at least 24 hours in advance if you are unable to keep this appointment. ) Functional capacity at discharge: independent ambulation Overall status at discharge: Stable Disposition: Home, Self-Care Quality - Multiple Antipsychotics Patient discharged on 2 or more antipsychotic medications: No Procedures - Procedures Procedures: Medication Management, Crisis Stabilization, Supportive Therapy, Group Therapy
== END 2019-05-10 12:25 | disposition home or self-care (01) | DRG 751 ==
LOC: EMEROOARM 20:26 → 1ANU 05-09 00:26
PROVIDERS: ADMIT Family Medicine; ATTEND Psychiatry & Neurology Psychiatry

== ENCOUNTER 2019-06-21 00:22 | Inpatient (IN) ==
[2019-06-21 01:09] LABS: Basophils % 0.6 %; Eosinophils # 0.1 K/mcL (0.0-0.6); Eosinophils % 1.6 %; Hematocrit 37.3 % (35.3-44.9); Hemoglobin 13.1 g/dL (11.5-15.4); Immature Granulocytes % 0.3 % (0-4); Lymphocytes # 2.5 K/mcL (0.6-4.6); Lymphocytes % 40.8 %; Mean Corpuscular HGB Conc 35.1 g/dL (31.6-35.5); Mean Corpuscular Hemoglobin 31.6 pg (28.0-33.3); Mean Corpuscular Volume 90.1 fL (83.0-100.0); Mean Platelet Volume 8.5 fL (9.4-12.4); Monocytes # 0.6 K/mcL (0.0-1.3); Monocytes % 10.1 %; Neutrophils # 2.9 K/mcL (1.6-8.9); Platelet Count 254 K/mcL (140-400); Red Blood Count 4.14 M/mcL (3.82-4.97); Red Cell Distribution Width 13.2 % (11.5-14.5); Segmented Neutrophils % 46.6 %; White Blood Count 6.2 K/mcL (4.3-11.1)
[2019-06-21] MEDS ORDERED: Lido/Epi/Tetra Gel 2 ML SYRINGE TP ONE (01:15)
[2019-06-21 01:19] LABS: Bilirubin,Urine Negative (Negative); Blood,Urine Small (Negative); Clarity,Urine Clear (Clear); Color,Urine Yellow (Yellow); Glucose,Urine (UA) Normal (Normal); Ketones,Urine Negative (Negative); Leukocyte Esterase,Urine Small (Negative); Nitrite,Urine Negative (Negative); Protein,Urine Negative (Neg-Trace); Urobilinogen,Urine Normal (Normal)
[2019-06-21 01:21] LABS: Bacteria,Urine None Seen per hpf (None-Few); Hyaline Casts,Urine None Seen per lpf (None-Few); Squamous Epithelial Cell,Urine Many per lpf (None-Few)
[2019-06-21 01:31] LABS: Acetaminophen < 10 mcg/mL (10-20); BUN/Creatinine Ratio 11 (6-26); Blood Urea Nitrogen 8 mg/dL (6-20); Carbon Dioxide 23 mEq/L (23-29); Chloride 107 mEq/L (98-107); Ethanol < 10 mg/dL (Less than 10); Glucose 74 mg/dL (70-105); Osmolality,Calculated 281 (280-300); Potassium 3.6 mEq/L (3.5-5.1); Salicylate < 2.5 mg/dL (15.0-30.0); Sodium 137 mEq/L (136-145); eGFR For African Americans > 60 (> 60); eGFR For Non-African Americans > 60 (> 60)
[2019-06-21 02:10] LABS: Amphetamine Screen,Urine Negative ng/mL (Cutoff=1000); Barbiturate Screen,Urine Positive ng/mL (Cutoff=200); Benzodiazepines Screen,Urine Negative ng/mL (Cutoff=200); Cannabinoid Screen,Urine Negative ng/mL (Cutoff = 50); Cocaine Screen,Urine Negative ng/mL (Cutoff= 300); Opiate Screen,Urine Negative ng/mL (Cutoff=300); Phencyclidine Screen,Urine Negative ng/mL (Cutoff=25)
[2019-06-21] MEDS ORDERED: *HR* LORazepam 2 MG/ML VIAL IM PRN (05:08)
[2019-06-21] MEDS ORDERED: Haloperidol Lactate 5 MG/ML VIAL IM PRN (05:08)
[2019-06-21] MEDS ORDERED: Mag Hydrox/Al Hydrox/Simeth 30 ML UDC PO PRN (05:08)
[2019-06-21] MEDS ORDERED: MOM Conc 10 ML UD.LIQ PO PRN (05:08)
[2019-06-21] MEDS ORDERED: *HR* LORazepam 1 MG TABLET PO PRN (05:08)
[2019-06-21] MEDS ORDERED: Ibuprofen 400 MG TABLET PO PRN (05:08)
[2019-06-21] MEDS ORDERED: hydrOXYzine pamoate 25 MG CAPSULE PO PRN (05:08)
[2019-06-21] MEDS ORDERED: traZODone 50 MG TABLET PO PRN (05:08)
[2019-06-21] MEDS ORDERED: Acetaminophen/Butalbital/CaffeineTABLET PO PRN (09:51)
[2019-06-21] MEDS: Gabapentin 300 MG CAPSULE PO SCH ×2 (15:33→20:44)
[2019-06-21] MEDS: levETIRAcetam 250 MG TABLET PO SCH (19:48)
[2019-06-21] MEDS ORDERED: QUEtiapine Fumarate 100 MG TABLET PO SCH (21:00)
[2019-06-22] MEDS: levETIRAcetam 250 MG TABLET PO SCH (06:12)
[2019-06-22] MEDS: Gabapentin 300 MG CAPSULE PO SCH (09:23)
[2019-06-22 09:24] VITALS: BP 113/72
== END 2019-06-22 11:45 | disposition home or self-care (01) | DRG 740 ==
LOC: EMEROOARM 00:22 → 1ANU 04:28
PROVIDERS: ADMIT Psychiatry & Neurology Psychiatry; ATTEND Psychiatry & Neurology Psychiatry

== ENCOUNTER 2019-08-23 15:36 | Observation (INO) ==
[2019-08-23 16:48] LABS: Amphetamine Screen,Urine Negative ng/mL (Cutoff=1000); Barbiturate Screen,Urine Positive ng/mL (Cutoff=200); Benzodiazepines Screen,Urine Negative ng/mL (Cutoff=200); Cannabinoid Screen,Urine Negative ng/mL (Cutoff = 50); Cocaine Screen,Urine Negative ng/mL (Cutoff= 300); Opiate Screen,Urine Negative ng/mL (Cutoff=300); Phencyclidine Screen,Urine Negative ng/mL (Cutoff=25)
[2019-08-23 16:56] LABS: Basophils % 0.6 %; Eosinophils # 0.1 K/mcL (0.0-0.6); Eosinophils % 3.1 %; Hematocrit 39.5 % (35.3-44.9); Hemoglobin 13.3 g/dL (11.5-15.4); Immature Granulocytes % 0.3 % (0-4); Lymphocytes # 1.6 K/mcL (0.6-4.6); Lymphocytes % 47.5 %; Mean Corpuscular HGB Conc 33.7 g/dL (31.6-35.5); Mean Corpuscular Hemoglobin 31.4 pg (28.0-33.3); Mean Corpuscular Volume 93.4 fL (83.0-100.0); Mean Platelet Volume 8.5 fL (9.4-12.4); Monocytes # 0.3 K/mcL (0.0-1.3); Neutrophils # 1.3 K/mcL (1.6-8.9); Platelet Count 274 K/mcL (140-400); Red Blood Count 4.23 M/mcL (3.82-4.97); Red Cell Distribution Width 14.1 % (11.5-14.5); Segmented Neutrophils % 40.5 %; White Blood Count 3.3 K/mcL (4.3-11.1)
[2019-08-23 17:15] LABS: BUN/Creatinine Ratio 8 (6-26); Blood Urea Nitrogen 8 mg/dL (6-20); Calcium 9.1 mg/dL (8.6-10.3); Carbon Dioxide 19 mEq/L (23-29); Chloride 112 mEq/L (98-107); Ethanol < 10 mg/dL (Less than 10); Glucose 83 mg/dL (70-105); Osmolality,Calculated 289 (280-300); Potassium 3.4 mEq/L (3.5-5.1); Salicylate < 2.5 mg/dL (15.0-30.0); Sodium 141 mEq/L (136-145); eGFR For African Americans > 60 (> 60); eGFR For Non-African Americans > 60 (> 60)
[2019-08-23 17:18] LABS: Acetaminophen 58 mcg/mL (10-20)
[2019-08-23] MEDS ORDERED: *HR* LORazepam 1 MG TABLET PO PRN (18:14)
[2019-08-23] MEDS ORDERED: Ibuprofen 400 MG TABLET PO PRN (18:14)
[2019-08-23] MEDS ORDERED: hydrOXYzine pamoate 25 MG CAPSULE PO PRN (18:14)
[2019-08-23] MEDS ORDERED: *HR* LORazepam 2 MG/ML VIAL IM PRN (18:14)
[2019-08-23] MEDS ORDERED: MOM Conc 10 ML UD.LIQ PO PRN (18:14)
[2019-08-23] MEDS ORDERED: Mag Hydrox/Al Hydrox/Simeth 30 ML UDC PO PRN (18:14)
[2019-08-23] MEDS ORDERED: Haloperidol Lactate 5 MG/ML VIAL IM PRN (18:14)
[2019-08-23] MEDS ORDERED: traZODone 50 MG TABLET PO PRN (18:14)
[2019-08-24 09:53] VITALS: BP 130/66
[2019-08-24] MEDS ORDERED: OXcarbazepine 150 MG TABLET PO SCH (21:00)
== END 2019-08-24 12:13 | disposition home or self-care (01) ==
LOC: 1ANU 15:36 → EMEROOARM 15:36 → 1ANU 18:19
PROVIDERS: ADMIT Psychiatry & Neurology Psychiatry; ATTEND Psychiatry & Neurology Psychiatry

== ENCOUNTER 2019-10-07 20:38 | Observation (INO) ==
[2019-10-07 21:14] LABS: Bilirubin,Urine Negative (Negative); Blood,Urine Negative (Negative); Clarity,Urine Clear (Clear); Color,Urine Yellow (Yellow); Glucose,Urine (UA) Normal (Normal); Ketones,Urine Negative (Negative); Leukocyte Esterase,Urine Negative (Negative); Nitrite,Urine Negative (Negative); Protein,Urine Negative (Neg-Trace); Urobilinogen,Urine Normal (Normal)
[2019-10-07] MEDS ORDERED: Isovue-370 500 ML BOTTLE IVP ONE (21:15)
[2019-10-07] MEDS ORDERED: 0.9 % Sodium Chloride 1,000 ML IVC STA (21:17)
[2019-10-07] MEDS ORDERED: *HR* Promethazine 25 MG/ML VIAL IVP ONE (21:17)
[2019-10-07] MEDS ORDERED: *HR* FentaNYL (PF) 100 MCG/2 ML VIAL IVP ONE (21:18)
[2019-10-07 22:19] LABS: Basophils % 0.6 %; Eosinophils # 0.1 K/mcL (0.0-0.6); Eosinophils % 1.8 %; Hematocrit 34.8 % (35.3-44.9); Hemoglobin 12.1 g/dL (11.5-15.4); Immature Granulocytes % 0.2 % (0-4); Lymphocytes # 1.8 K/mcL (0.6-4.6); Lymphocytes % 34.7 %; Mean Corpuscular HGB Conc 34.8 g/dL (31.6-35.5); Mean Corpuscular Hemoglobin 31.2 pg (28.0-33.3); Mean Corpuscular Volume 89.7 fL (83.0-100.0); Mean Platelet Volume 8.2 fL (9.4-12.4); Monocytes # 0.6 K/mcL (0.0-1.3); Monocytes % 10.8 %; Neutrophils # 2.7 K/mcL (1.6-8.9); Platelet Count 310 K/mcL (140-400); Red Blood Count 3.88 M/mcL (3.82-4.97); Red Cell Distribution Width 13.2 % (11.5-14.5); Segmented Neutrophils % 51.9 %; White Blood Count 5.1 K/mcL (4.3-11.1)
[2019-10-07 22:35] LABS: Alanine Aminotransferase 24 Units/L (7-52); Albumin/Globulin Ratio 1.3 (1.1-2.2); Alkaline Phosphatase 54 Units/L (34-104); Aspartate Amino Transferase 24 Units/L (13-39); BUN/Creatinine Ratio 15 (6-26); Bilirubin,Indirect 0.2 mg/dL (0.0-1.0); Bilirubin,Total 0.2 mg/dL (0.3-1.0); Blood Urea Nitrogen 11 mg/dL (6-20); Calcium 9.2 mg/dL (8.6-10.3); Carbon Dioxide 22 mEq/L (23-29); Chloride 104 mEq/L (98-107); Glucose 93 mg/dL (70-105); Magnesium 1.5 mg/dL (1.6-2.6); Osmolality,Calculated 275 (280-300); Potassium 3.6 mEq/L (3.5-5.1); Sodium 133 mEq/L (136-145); eGFR For African Americans > 60 (> 60); eGFR For Non-African Americans > 60 (> 60)
[2019-10-07] MEDS ORDERED: Vancomycin Oral Soln 125 MG/2.5 ML UDC PO ONE (23:00)
[2019-10-08] MEDS ORDERED: Naloxone 0.4 MG/ML INJ IVP PRN ×2 (01:55→03:12)
[2019-10-08] MEDS ORDERED: NON-FORMULARY MEDICATION 1 EACH EACH (Quetiapine Fumarate 400 MG) PO SCH (02:00)
[2019-10-08] MEDS: levETIRAcetam 250 MG TABLET PO SCH ×3 (02:10→20:48)
[2019-10-08] MEDS ORDERED: Magnesium Sulfate 2 GM/100 ML PIGGYBACK IVPB ONE (02:15)
[2019-10-08] MEDS: *HR* Heparin 5,000 UNIT/ML VIAL SQ SCH ×2 (04:40→16:55)
[2019-10-08 05:50] LABS: Basophils % 0.4 %; Eosinophils # 0.1 K/mcL (0.0-0.6); Eosinophils % 2.5 %; Hematocrit 33.1 % (35.3-44.9); Hemoglobin 11.4 g/dL (11.5-15.4); Immature Granulocytes % 0.2 % (0-4); Lymphocytes # 1.9 K/mcL (0.6-4.6); Lymphocytes % 39.1 %; Mean Corpuscular HGB Conc 34.4 g/dL (31.6-35.5); Mean Corpuscular Hemoglobin 30.9 pg (28.0-33.3); Mean Corpuscular Volume 89.7 fL (83.0-100.0); Mean Platelet Volume 8.5 fL (9.4-12.4); Monocytes # 0.5 K/mcL (0.0-1.3); Monocytes % 10.3 %; Neutrophils # 2.3 K/mcL (1.6-8.9); Platelet Count 310 K/mcL (140-400); Red Blood Count 3.69 M/mcL (3.82-4.97); Red Cell Distribution Width 13.3 % (11.5-14.5); Segmented Neutrophils % 47.5 %; White Blood Count 4.8 K/mcL (4.3-11.1)
[2019-10-08 05:59] LABS: Prothrombin Time 11.2 Seconds (9.4-12.1)
[2019-10-08 06:11] LABS: Alanine Aminotransferase 21 Units/L (7-52); Albumin 3.6 g/dL (3.5-5.7); Albumin/Globulin Ratio 1.3 (1.1-2.2); Alkaline Phosphatase 51 Units/L (34-104); Aspartate Amino Transferase 20 Units/L (13-39); BUN/Creatinine Ratio 11 (6-26); Bilirubin,Total 0.2 mg/dL (0.3-1.0); Blood Urea Nitrogen 9 mg/dL (6-20); Calcium 8.6 mg/dL (8.6-10.3); Carbon Dioxide 24 mEq/L (23-29); Chloride 106 mEq/L (98-107); Globulin 2.7 g/dL (2.4-3.5); Glucose 113 mg/dL (70-105); Magnesium 2.1 mg/dL (1.6-2.6); Osmolality,Calculated 285 (280-300); Phosphorous 4.1 mg/dL (2.7-4.5); Potassium 3.5 mEq/L (3.5-5.1); Sodium 138 mEq/L (136-145); Total Protein 6.3 g/dL (6.4-8.9); eGFR For African Americans > 60 (> 60); eGFR For Non-African Americans > 60 (> 60)
[2019-10-08] MEDS ORDERED: Vancomycin Oral Soln 125 MG/2.5 ML UDC PO SCH (09:00)
[2019-10-08] MEDS ORDERED: Mirtazapine 15 MG TABLET PO SCH ×2 (09:00→21:00)
[2019-10-08] MEDS ORDERED: Acetaminophen/Butalbital/CaffeineTABLET PO PRN (09:35)
[2019-10-08] MEDS ORDERED: hydrOXYzine pamoate 25 MG CAPSULE PO PRN (09:35)
[2019-10-08] MEDS: Gabapentin 300 MG CAPSULE PO SCH ×2 (14:37→20:47)
[2019-10-08] MEDS: Ondansetron ODT 4 MG TAB.RAPDIS SL PRN (16:53)
[2019-10-08] MEDS: Vancomycin Oral Soln 125 MG/2.5 ML UDC PO SCH ×2 (16:55→20:49)
[2019-10-08] MEDS: OXcarbazepine 150 MG TABLET PO SCH (20:48)
[2019-10-08] MEDS ORDERED: traZODone 50 MG TABLET PO SCH (21:00)
[2019-10-09] MEDS: Ondansetron ODT 4 MG TAB.RAPDIS SL PRN (00:44)
[2019-10-09] MEDS: *HR* Heparin 5,000 UNIT/ML VIAL SQ SCH (05:03)
[2019-10-09 07:08] VITALS: BP 95/59
[2019-10-09] MEDS: Gabapentin 300 MG CAPSULE PO SCH (08:29)
[2019-10-09] MEDS: levETIRAcetam 250 MG TABLET PO SCH (08:29)
[2019-10-09] MEDS: OXcarbazepine 150 MG TABLET PO SCH (08:29)
[2019-10-09] MEDS: Vancomycin Oral Soln 125 MG/2.5 ML UDC PO SCH (08:30)
[2019-10-09] MEDS ORDERED: Loratadine 10 MG TABLET PO SCH (09:00)
[2019-10-09] MEDS ORDERED: NON-FORMULARY MEDICATION 1 EACH EACH (Omega-3/Dha/Epa/Fish Oil [Fish Oil 1,000 Mg Softgel] PO SCH (09:00)
[2019-10-09] MEDS ORDERED: Fluticasone Propionate Nasal 50 MCG/SPRAY BOTTLE NS SCH (09:00)
[2019-10-09] MEDS ORDERED: Cholecalciferol (D-3) 1,000 UNIT (25MCG) TABLET PO SCH (09:00)
== END 2019-10-09 10:10 | disposition home or self-care (01) ==
LOC: 3BNU 20:38 → EMEROOARM 20:38 → 3BNU 10-08 00:55
PROVIDERS: ADMIT Internal Medicine; ATTEND Internal Medicine

== ENCOUNTER 2019-10-11 00:46 | Inpatient (IN) ==
[2019-10-11] MEDS ORDERED: Lido/Epi/Tetra Gel 2 ML SYRINGE TP ONE (01:36)
[2019-10-11 01:52] LABS: Basophils # 0.1 K/mcL (0.0-0.2); Basophils % 0.7 %; Eosinophils # 0.1 K/mcL (0.0-0.6); Eosinophils % 0.7 %; Hematocrit 39.7 % (35.3-44.9); Immature Granulocytes % 0.3 % (0-4); Lymphocytes # 1.8 K/mcL (0.6-4.6); Mean Corpuscular Hemoglobin 31.6 pg (28.0-33.3); Mean Corpuscular Volume 87.6 fL (83.0-100.0); Mean Platelet Volume 8.6 fL (9.4-12.4); Monocytes # 0.7 K/mcL (0.0-1.3); Platelet Count 418 K/mcL (140-400); Red Blood Count 4.53 M/mcL (3.82-4.97); Red Cell Distribution Width 13.1 % (11.5-14.5); Segmented Neutrophils % 64.3 %
[2019-10-11 01:53] LABS: Hemoglobin 14.3 g/dL (11.5-15.4); Neutrophils # 4.8 K/mcL (1.6-8.9); White Blood Count 7.4 K/mcL (4.3-11.1)
[2019-10-11 01:54] LABS: Bilirubin,Urine Negative (Negative); Blood,Urine Negative (Negative); Clarity,Urine Clear (Clear); Color,Urine Yellow (Yellow); Glucose,Urine (UA) Normal (Normal); Ketones,Urine Negative (Negative); Leukocyte Esterase,Urine Negative (Negative); Nitrite,Urine Negative (Negative); Protein,Urine Negative (Neg-Trace); Specific Gravity,Urine 1.015 (1.010-1.025); Urobilinogen,Urine Normal (Normal)
[2019-10-11 02:04] LABS: Amphetamine Screen,Urine Positive ng/mL (Cutoff=1000); Barbiturate Screen,Urine Positive ng/mL (Cutoff=200); Benzodiazepines Screen,Urine Negative ng/mL (Cutoff=200); Cannabinoid Screen,Urine Positive ng/mL (Cutoff = 50); Cocaine Screen,Urine Negative ng/mL (Cutoff= 300); Opiate Screen,Urine Negative ng/mL (Cutoff=300); Phencyclidine Screen,Urine Negative ng/mL (Cutoff=25)
[2019-10-11 02:11] LABS: Acetaminophen < 10 mcg/mL (10-20); BUN/Creatinine Ratio 7 (6-26); Blood Urea Nitrogen 8 mg/dL (6-20); Calcium 10.2 mg/dL (8.6-10.3); Carbon Dioxide 21 mEq/L (23-29); Chloride 103 mEq/L (98-107); Ethanol < 10 mg/dL (Less than 10); Glucose 106 mg/dL (70-105); Osmolality,Calculated 279 (280-300); Salicylate < 2.5 mg/dL (15.0-30.0); Sodium 135 mEq/L (136-145); eGFR For African Americans > 60 (> 60); eGFR For Non-African Americans 58 (> 60)
[2019-10-11] MEDS ORDERED: Lidocaine/EPI 1:100k 1% 30 ML VIAL INFILT ONE (02:31)
[2019-10-11] MEDS ORDERED: Doxycycline 100 MG CAPSULE PO ONE (05:35)
[2019-10-11] MEDS ORDERED: Acetaminophen 325 MG TABLET PO ONE (07:17)
[2019-10-11] MEDS ORDERED: Mag Hydrox/Al Hydrox/Simeth 30 ML UDC PO PRN (11:32)
[2019-10-11] MEDS ORDERED: *HR* LORazepam 1 MG TABLET PO PRN (11:32)
[2019-10-11] MEDS ORDERED: Haloperidol Lactate 5 MG/ML VIAL IM PRN (11:32)
[2019-10-11] MEDS ORDERED: hydrOXYzine pamoate 25 MG CAPSULE PO PRN (11:32)
[2019-10-11] MEDS ORDERED: MOM Conc 10 ML UD.LIQ PO PRN (11:32)
[2019-10-11] MEDS ORDERED: traZODone 50 MG TABLET PO PRN (11:32)
[2019-10-11] MEDS ORDERED: *HR* LORazepam 2 MG/ML VIAL IM PRN (11:32)
[2019-10-11] MEDS ORDERED: Ibuprofen 400 MG TABLET PO PRN (11:32)
[2019-10-11] MEDS ORDERED: Ibuprofen 800 MG TABLET PO PRN (11:53)
[2019-10-11] MEDS ORDERED: Acetaminophen/Butalbital/CaffeineTABLET PO PRN (11:53)
[2019-10-11] MEDS: Sucralfate 1 GM TABLET PO SCH ×4 (15:35→21:12)
[2019-10-11] MEDS: Cholecalciferol (D-3) 1,000 UNIT (25MCG) TABLET PO SCH (15:35)
[2019-10-11] MEDS: levETIRAcetam 250 MG TABLET PO SCH ×2 (15:35→21:12)
[2019-10-11] MEDS: OXcarbazepine 150 MG TABLET PO SCH ×2 (15:35→21:12)
[2019-10-11] MEDS: hydrOXYzine pamoate 25 MG CAPSULE PO SCH ×4 (15:35→21:11)
[2019-10-11] MEDS: Loratadine 10 MG TABLET PO SCH (15:35)
[2019-10-11] MEDS: Gabapentin 300 MG CAPSULE PO SCH ×4 (15:35→21:11)
[2019-10-11] MEDS: Fluticasone Propionate Nasal 50 MCG/SPRAY BOTTLE NS SCH (15:38)
[2019-10-11] MEDS: traZODone 50 MG TABLET PO SCH ×2 (15:39→21:12)
[2019-10-11] MEDS: (Omega-3/Dha/Epa/Fish Oil [Fish Oil 1,000 Mg Softgel]) PO SCH ×2 (15:39→21:21)
[2019-10-11] MEDS: Mirtazapine 15 MG TABLET PO SCH ×2 (15:39→21:12)
[2019-10-11] MEDS: Vancomycin Oral Soln 125 MG/2.5 ML UDC PO SCH ×2 (17:39→21:16)
[2019-10-12] MEDS: Gabapentin 300 MG CAPSULE PO SCH ×3 (09:52→21:31)
[2019-10-12] MEDS: Loratadine 10 MG TABLET PO SCH (09:52)
[2019-10-12] MEDS: Cholecalciferol (D-3) 1,000 UNIT (25MCG) TABLET PO SCH (09:52)
[2019-10-12] MEDS: hydrOXYzine pamoate 25 MG CAPSULE PO SCH ×3 (09:52→21:31)
[2019-10-12] MEDS: Sucralfate 1 GM TABLET PO SCH ×3 (09:52→21:30)
[2019-10-12] MEDS: levETIRAcetam 250 MG TABLET PO SCH ×2 (09:53→21:31)
[2019-10-12] MEDS: OXcarbazepine 150 MG TABLET PO SCH ×2 (09:53→21:30)
[2019-10-12] MEDS: Vancomycin Oral Soln 125 MG/2.5 ML UDC PO SCH ×4 (09:53→21:35)
[2019-10-12] MEDS: Fluticasone Propionate Nasal 50 MCG/SPRAY BOTTLE NS SCH (09:55)
[2019-10-12] MEDS: (Omega-3/Dha/Epa/Fish Oil [Fish Oil 1,000 Mg Softgel]) PO SCH (09:55)
[2019-10-12] MEDS: traZODone 50 MG TABLET PO SCH (21:30)
[2019-10-12] MEDS: Mirtazapine 15 MG TABLET PO SCH (21:31)
[2019-10-13] MEDS: OXcarbazepine 150 MG TABLET PO SCH (09:25)
[2019-10-13 09:26] VITALS: BP 100/66
[2019-10-13] MEDS: Sucralfate 1 GM TABLET PO SCH (09:26)
[2019-10-13] MEDS: Gabapentin 300 MG CAPSULE PO SCH (09:26)
[2019-10-13] MEDS: Loratadine 10 MG TABLET PO SCH (09:26)
[2019-10-13] MEDS: Cholecalciferol (D-3) 1,000 UNIT (25MCG) TABLET PO SCH (09:26)
[2019-10-13] MEDS: hydrOXYzine pamoate 25 MG CAPSULE PO SCH (09:27)
[2019-10-13] MEDS: levETIRAcetam 250 MG TABLET PO SCH (09:27)
[2019-10-13] MEDS: Vancomycin Oral Soln 125 MG/2.5 ML UDC PO SCH (09:28)
[2019-10-13] MEDS: Fluticasone Propionate Nasal 50 MCG/SPRAY BOTTLE NS SCH (09:29)
== END 2019-10-13 12:55 | disposition home or self-care (01) | DRG 753 ==
LOC: EMEROOARM 00:46 → 1ANU 10:48 → INTOOBSV 10:48 → 1ANU 11:10
PROVIDERS: ADMIT Psychiatry & Neurology Psychiatry; ATTEND Psychiatry & Neurology Psychiatry

== ENCOUNTER 2021-04-02 20:20 | Inpatient (IN) ==
[2021-04-02 21:01] LABS: Bilirubin,Urine Negative (Negative); Blood,Urine Negative (Negative); Clarity,Urine Clear (Clear); Color,Urine Yellow (Yellow); Glucose,Urine (UA) Normal (Normal); Ketones,Urine Negative (Negative); Leukocyte Esterase,Urine Negative (Negative); Nitrite,Urine Negative (Negative); Protein,Urine Trace mg/dL (Neg-Trace); Specific Gravity,Urine >= 1.030 (1.010-1.025); Urobilinogen,Urine Normal (Normal)
[2021-04-02 21:02] LABS: Basophils # 0.1 K/mcL (0.0-0.2); Basophils % 0.8 %; Eosinophils # 0.2 K/mcL (0.0-0.6); Eosinophils % 3.4 %; Hematocrit 35.5 % (35.3-44.9); Immature Granulocytes % 0.2 % (0-4); Lymphocytes % 34.5 %; Mean Corpuscular HGB Conc 33.8 g/dL (31.6-35.5); Mean Corpuscular Hemoglobin 30.3 pg (28.0-33.3); Mean Corpuscular Volume 89.6 fL (83.0-100.0); Mean Platelet Volume 8.7 fL (9.4-12.4); Monocytes # 0.7 K/mcL (0.0-1.3); Monocytes % 11.2 %; Platelet Count 279 K/mcL (140-400); Red Blood Count 3.96 M/mcL (3.82-4.97); Red Cell Distribution Width 13.9 % (11.5-14.5); Segmented Neutrophils % 49.9 %; White Blood Count 5.9 K/mcL (4.3-11.1)
[2021-04-02 21:04] LABS: Bacteria,Urine Few per hpf (None-Few); Mucus,Urine Few per lpf (None-Few); Squamous Epithelial Cell,Urine Many per hpf (None-Few); WBC,Urine 15-30 per hpf (0-3)
[2021-04-02 21:19] LABS: Estimated Average Glucose 108 mg/dl; Hemoglobin A1C 5.4 %
[2021-04-02 21:26] LABS: Acetaminophen < 10 mcg/mL (10-20); BUN/Creatinine Ratio 15 (6-26); Blood Urea Nitrogen 13 mg/dL (6-20); Carbon Dioxide 23 mEq/L (23-29); Chloride 108 mEq/L (98-107); Chol/HDL Ratio 4.8 (0-4.9); Cholesterol 237 mg/dL (< 200); Ethanol < 10 mg/dL (Less than 10); Glucose 95 mg/dL (70-105); HDL Cholesterol 49 mg/dL (40-59); LDL Cholesterol,Calculated 156 mg/dL (< 100); Osmolality,Calculated 288 (280-300); Potassium 3.6 mEq/L (3.5-5.1); Salicylate < 2.5 mg/dL (15.0-30.0); Sodium 139 mEq/L (136-145); Triglycerides 161 mg/dL (< 150); eGFR For African Americans > 60 (> 60); eGFR For Non-African Americans > 60 (> 60)
[2021-04-02 21:55] LABS: Amphetamine Screen,Urine Negative ng/mL (Cutoff=1000); Barbiturate Screen,Urine Positive ng/mL (Cutoff=200); Benzodiazepines Screen,Urine Negative ng/mL (Cutoff=200); Cannabinoid Screen,Urine Negative ng/mL (Cutoff = 50); Cocaine Screen,Urine Negative ng/mL (Cutoff= 300); Opiate Screen,Urine Negative ng/mL (Cutoff=300); Phencyclidine Screen,Urine Negative ng/mL (Cutoff=25)
[2021-04-02 23:39] LABS: Influenza A PCR Negative (Negative); Influenza B PCR Negative (Negative); Resp. Syncytial Virus PCR Negative (Negative); SARS-CoV-2 by PCR (In House) Negative (Negative)
[2021-04-03] MEDS ORDERED: traZODone 50 MG TABLET PO PRN (00:17)
[2021-04-03] MEDS ORDERED: Acetaminophen 325 MG TABLET PO PRN (00:17)
[2021-04-03] MEDS ORDERED: *HR* LORazepam 1 MG TABLET PO PRN (00:17)
[2021-04-03] MEDS ORDERED: Haloperidol Lactate 5 MG/ML VIAL IM PRN (00:17)
[2021-04-03] MEDS ORDERED: hydrOXYzine pamoate 25 MG CAPSULE PO PRN (00:17)
[2021-04-03] MEDS ORDERED: haloperidoL 5 MG TABLET PO PRN (00:17)
[2021-04-03] MEDS ORDERED: *HR* LORazepam 2 MG/ML VIAL IM PRN (00:17)
[2021-04-03] MEDS: levETIRAcetam 250 MG TABLET PO SCH ×3 (02:00→20:26)
[2021-04-03] MEDS ORDERED: MOM Conc 10 ML UD.LIQ PO PRN (13:04)
[2021-04-03] MEDS ORDERED: Mag Hydrox/Al Hydrox/Simeth 30 ML UDC PO PRN (13:04)
[2021-04-03] MEDS: Gabapentin 300 MG CAPSULE PO SCH ×2 (16:09→20:26)
[2021-04-03] MEDS: OXcarbazepine 150 MG TABLET PO SCH (20:25)
[2021-04-03] MEDS ORDERED: QUEtiapine Fumarate 100 MG TABLET PO SCH ×3 (21:00)
[2021-04-03] MEDS ORDERED: Mirtazapine 15 MG TABLET PO SCH (21:00)
[2021-04-04] MEDS: levETIRAcetam 250 MG TABLET PO SCH (08:51)
[2021-04-04] MEDS: Gabapentin 300 MG CAPSULE PO SCH (08:51)
[2021-04-04] MEDS: OXcarbazepine 150 MG TABLET PO SCH (08:51)
[2021-04-04 08:55] VITALS: BP 128/82
== END 2021-04-04 14:15 | disposition home or self-care (01) | DRG 753 ==
LOC: EMEROOARM 20:20 → 1ANU 04-03 00:15
PROVIDERS: ADMIT Psychiatry & Neurology Psychiatry; ATTEND Psychiatry & Neurology Psychiatry